=== PATIENT | female | born 1950 | race Caucasian/White ===

== ENCOUNTER 2024-04-05 12:52 | Outpatient (AMB) | payer MEDICARE, SELFPAY ==
--- NOTE | 2024-04-05 12:29 | A.OFFPC_ITS ---
Vital Signs 04/05/24 13:27 04/05/24 13:33 BMI Reason not done Patient refused/unable BP 154/64 H 144/58 H Blood Pressure Location Lt brachial Lt brachial Position Sitting Sitting Pulse 66 Pulse Source Pulse Oximeter Pulse Oximetry (%) 96 Oxygen Delivery Method Room Air Intake Visit Reasons: [employer]ICE-[employer] (get ins) Intake Note: New patient visit Integrated [employer]er Required: No Allergies Sulfa (Sulfonamide Antibiotics) Allergy (Unknown, Verified 04/05/24 13:19) Unknown Tobacco use date assessed: 04/05/24 Fall risk assessment: 2 + Falls in past year Last assessed Fall Risk: 04/05/24 Dental Screening Dental Screen Date: 04/05/24 Did you have a dental visit in the last 12 months?: No Did you have a dental problem in the last 6 months where you did not have access to dental care?: No Was dental information given to patient?: Patient has dentist HPI HPI Comments History of Present Illness Details 73 year old female with a past medical h istory of hypertension, hyperlipidemia, rheumatoid arthritis, recurrent UTI presenting [facility]. Transferring from [facility]. Was following with Dr Monk and Dr Rubin CV: BP elevated today. On amlodipine 5mg daily. Denies chest pain, shortness of breath. Had a panic attack/chest pain/palpitations. Echo was reassuring. Placed on holter monitor-was also reassuring. Follows with Dr Monk [facility]. She is frustrated by weight gain. She exercises regularly but admits to dietary indiscretion. Might consider GLP1 Urologic: Follows with Dr San. On macrobid daily and Gemtesa RA: Was following with rheumatology. Did not feel any better on MTX or humira. She takes ibuprofen TID tells me kidney function is stable. Bilateral hand pain- chronic Colonoscopy: 2022-Dr Toney. Says 5 year repeat Mammogram: No longer doing-declines ROS CONSTITUTIONAL: Denies weight loss, fever and chills. HEENT: Denies changes in vision and hearing. RESPIRATORY: Denies SOB and cough. CV: Denies palpitations and CP GI: Denies abdominal pain, nausea, vomiting and diarrhea. : Denies dysuria and urinary frequency. MSK: Denies new myalgia and joint pain. SKIN: Denies rash and pruritus. NEUROLOGICAL: Denies headache PSYCHIATRIC: Denies recent changes in mood. PHYSICAL EXAM: GENERAL: Alert and oriented x 3. NAD EYES: EOMI. Anicteric. HENT: Moist mucous membranes. No scleral icterus. No cervical lymphadenopathy. LUNGS: Clear to auscultation bilaterally. CARDIOVASCULAR: Regular rate and rhythm. No murmur. No JVD. ABDOMEN: Soft, non-tender +bs EXTREMITIES: No edema. Non-tender. SKIN: No rashes or lesions. Warm. NEUROLOGIC: No focal neurological deficits. CN II-XII grossly intact PSYCHIATRIC: Cooperative. Appropriate mood and affect [facility] Surgical History History of cholecystectomy H/O section Family History Mother Colon cancer Sister Pancreatic cancer Brother Heart attack Social History Housing: Apartment Alcohol intake: current Patient Tobacco Use Status: Former Tobacco user Years Smoked: 55 e-Cigarette/Vaping Use: Currently Using service: No Current occupational status: retired Cognitive needs: No Hearing needs: No Vision needs: Yes (glasses) Questionnaire Thrive Questionnaire Date Thrive assessed: 03/29/24 I am a: Patient What is your living situation today?: I have a steady place to live Within the past 12 months, did the food you bought not last and you didn't have the money to get more?: Never true Within the past 12 months, did you worry whether your food would run out before you got money to buy more?: Never true Do you have trouble paying for medicines?: No Do you have trouble getting transportation to medical appointments?: No Do you have trouble paying your heating and electricity bill?: No Do you have trouble taking care of your child, family member or friend?: No Do you have trouble with day-to-day activities such as bathing, preparing meals, shopping, managing finances, etc.?: No Are you currently unemployed and looking for a job?: No Are you interested in more education?: No Please select the resources that you would like help with: None Currently or been in a relationship where the following occur: No concerns reported THRIVE Score: 0 AUDIT C Alcohol Use Questionnaire (AUDIT-C) 1. How often do you have a drink containing alcohol?: 2-4 times a month 2. How many drinks containing alcohol do you have on a typical day when you are drinking?: 1 or 2 3. How often do you have six or more drinks on one occasion?: Never Total Score: 2 MARIANO-7 AMB Questionnaire MARIANO-7 Date MARIANO - 7 assessed: 04/05/24 Feeling nervous, anxious, or on edge: 1 = Several days Not being able to stop or control worryin = Several days Worrying too much about different things: 1 = Several days Trouble relaxin = Not at all Being so restless that it is hard to sit still: 0 = Not at all Becoming easily annoyed or irritable: 0 = Not at all Feeling afraid as if something awful might happen: 0 = Not at all Total MARIANO-7 score (0-4 normal; 5-9 mild; 10-14 moderate; 15-21 severe): 3 Source: Developed by Drs. Kevin Alex, Shabnam Childers, Dionicio Marx and colleagues, with an educational ger from [employer]. MARIANO-7 Assessment Billing MARIANO-7 Assessment Tool: MARIANO-7 Assessment 18083 Physical exam (Primary Care) Vital Signs: Last Vital Signs Pulse 66 04/05/24 13:27 BP 144/58 H 04/05/24 13:33 Pulse Ox 96 04/05/24 13:27 Oxygen Delivery Method Room Air 04/05/24 13:27 Tobacco/Smoking Status: Tobacco use Status Tobacco use date assessed 04/05/24 04/05/24 13:30 Patient Tobacco Use Status Former Tobacco user 04/05/24 13:53 e-Cigarette/Vaping Use Currently Using 04/05/24 13:53 Thrive Assessment: Date of Thrive Assessment Date Thrive assessed 03/29/24 04/05/24 12:30 Currently or been in a relationship where the following occur: No concerns reported Coding Level of Care Code New Pt Level 4 (00039) Complex EM visit Add On G2211 Diagnoses Encounter to establish care Z76.89 Primary hypertension I10 Hypertension type: primary hypertension Other hyperlipidemia E78.49 Hyperlipidemia type: other hyperlipidemia Rheumatoid arthritis, involving unspecified site, unspecified whether rheumatoid factor present M06.9 Rheumatoid arthritis location: unspecified site Rheumatoid factor presence: unspecified presence Additional Codes MARIANO-7 Assessment Billing - MARIANO-7 Assessment Tool: MARIANO-7 Assessment 77485 ([id number]) Assessment & Plan Assessment & Plan (1) Encounter to establish care: Code(s): Z76.89 - Persons encountering health services in other specified circumstances Category: Medical Plan: 73 year old presenting to establish care. Past medical, surgical, social and family history reviewed. Chart updated. Medications reconciled (2) Hypertension: Code(s): I10 - Essential (primary) hypertension Category: Medical Qualifiers: Hypertension type: primary hypertension Qualified Code(s): I10 - Essential (primary) hypertension Plan: Minimally elevated today. Says generally well controlled. She will start monitoring at home (3) Hyperlipidemia: Code(s): E78.5 - Hyperlipidemia, unspecified Category: Medical Qualifiers: Hyperlipidemia type: other hyperlipidemia Qualified Code(s): E78.49 - Other hyperlipidemia Plan: continue statin therapy (4) Rheumatoid arthritis: Code(s): M06.9 - Rheumatoid arthritis, unspecified Category: Medical Qualifiers: Rheumatoid arthritis location: unspecified site Rheumatoid factor presence: unspecified presence Qualified Code(s): M06.9 - Rheumatoid arthritis, unspecified Plan: ok on nsaids. monitor kidney function Orders: Orders TSH reflex Free T4 04/05/24 E78.5 - Hyperlipidemia, unspecified, I10 - Essential (primary) hypertension, R25.2 - Cramp and spasm, Z13.228 - Encounter for screening for other metabolic disorders Lipid Panel 04/05/24 E78.5 - Hyperlipidemia, unspecified, I10 - Essential (primary) hypertension, R25.2 - Cramp and spasm, Z13.228 - Encounter for screening for other metabolic disorders Comprehensive Met. Panel 04/05/24 E78.5 - Hyperlipidemia, unspecified, I10 - Essential (primary) hypertension, R25.2 - Cramp and spasm, Z13.228 - Encounter for screening for other metabolic disorders Complete Blood Count Auto Diff 04/05/24 E78.5 - Hyperlipidemia, unspecified, I10 - Essential (primary) hypertension, R25.2 - Cramp and spasm, Z13.228 - Encounter for screening for other metabolic disorders IRON PROFILE 04/05/24 E78.5 - Hyperlipidemia, unspecified, I10 - Essential (primary) hypertension, R25.2 - Cramp and spasm, Z13.228 - Encounter for s creening for other metabolic disorders
[2024-04-05 13:27] VITALS: BP 154/64; PULSE 66; O2SAT 96
[2024-04-05 13:33] VITALS: BP 144/58
--- OUTSIDE RECORDS SUMMARY | 2024-04-05 13:43 | XMS_ITS | Clinical Summary ---
Author Organization [facility] Address [address] [place] [address] Phone Care Team Providers Care Zigzag Machine Operator Name Role Phone Adrianna Parkinson MD Primary Care Provider [phone] Allergies Active Allergy Reactions Criticality Noted Date Comments Adalimumab 09/05/2019 Other reaction(s): Rash/Dermatitis Other Reaction(s): Rash/Dermatitis Erythromycin 06/05/2014 Simvastatin 06/14/2014 Other Reaction(s): Myalgia and Joint Pain Other reaction(s): Myalgia and Joint Pain Sulfa (Sulfonamide Antibiotics) 05/23/2021 Sulfur 06/05/2014 Medications Medication Sig Dispensed Refills Start Date End Date Status fenofibrate (TRICOR) 48 mg tablet Take 1 tablet (48 mg total) by mouth 1 (one) time each day. 01/07/2024 Active ibuprofen (ADVIL,MOTRIN) 800 mg tablet TAKE 1 TABLET BY MOUTH EVERY 8 HOURS NEEDED FOR PAIN 10/29/2023 Active amLODIPine (NORVASC) 5 mg tablet Take 1 tablet (5 mg total) by mouth 1 (one) time each day. 10/08/2023 Active econazole nitrate 1 % cream APPLY DAILY TO SKIN TO AFFECTED AREA EVERY DAY 06/15/2023 Active clotrimazole-betamet hasone (LOTRISONE) 1-0.05 % cream APPLY 1 APPLICATION ON THE SKIN TWICE A DAY 05/25/2023 Active nitrofurantoin, macrocrystal-monohyd rate, (MACROBID) 100 mg capsule Take 1 capsule (100 mg total) by mouth at bedtime. 12/10/2022 Active fluticasone propionate (FLONASE) 50 mcg/actuation nasal spray INSTILL 2 SPRAY INTO EACH NOSTRILL DAILY 04/26/2021 Active magnesium oxide 500 mg magnesium tablet Take by mouth. A ctive cholecalciferol (VITAMIN D-3) 50 mcg (2,000 unit) tablet Take by mouth. A ctive vibegron (Gemtesa) 75 mg tablet tablet Take 1 tablet (75 mg total) by mouth 1 (one) time each day. Active Active Problems Problem Noted Date Diagnosed Date High pulmonary arterial pressure 01/27/2024 Assessment & Plan (01/27/2024 3:17 PM EST): I reassured her that the echocardiographic evidence of mild pulmonary hypertension is most of the time not clinically significant. She does not have any symptoms. No further test is needed at this time. Orders: Ambulatory referral to Cardiology ECG 12 lead Severe obesity (BMI 35.0-35.9 with comorbidity) 01/25/2024 Abnormal EKG 04/15/2023 Chronic fatigue 04/15/2023 Murmur, cardiac 04/15/2023 Palpitations 04/15/2023 Assessment & Plan (01/27/2024 3:17 PM EST): We will try to detect the rhythm abnormality to define it and plan on management. Since this palpitation happens to occur once or twice a week, I will put her on 2 weeks of ROCT monitoring. Orders: Cardiac event monitor; Future Hypertension 04/25/2022 Colon polyp 04/26/2020 Overview (01/25/2024): [place] 03/2020, due again 09/2020 Recurrent UTI 10/28/2019 Overview (01/25/2024): Sees urology Lung nodules 10/04/2018 Overview (01/25/2024): LDCT TB lung, latent 02/08/2018 Oral herpes 06/09/2017 Impaired fasting glucose 05/06/2016 Seropositive rheumatoid arthritis 09/18/2015 Overview (01/25/2024): Onset ~ 2014 Brief courses of methotrexate 2015, 2018 - patient stopped meds on her own 2018- patient restarted MTX-developed stomatitis and stopped on her own 2019- humira- injection site reaction 09/2019- start olumiant Anxiety 06/05/2014 Hip pain, chronic 06/05/2014 Pure hypercholesterolemia 06/05/2014 Vertigo 06/05/2014 Vitamin D deficiency 06/05/2014 Encounters Date Type Department Care Team Description 02/08/2024 9:00 AM EST Ancillary Procedure [facility] Cardiology [facility] [address] [facility] [address] [facility] [address] [place] [address] Palpitations 02/01/[address] [place] [address] Sharath Monk MD ROCT - [id number] (Ok to Book); ROCT Enrollment (Enrolling patient for 14 day ROCT) 01/27/2024 2:00 PM EST Office Visit [address] [place] [address] Sharath Monk MD Palpitations (Primary Dx); High pulmonary arterial pressure (CMS/HCC) 01/19/2024 Telephone Adult Medicine [address] [phone] Wilfredo Pittman MD Forms/questionnaires 01/19/2024 Telephone Adult Medicine [address] [phone] Wilfredo Pittman MD from Last 3 Months Immunizations Name Administration Dates Next Due Influenza trivalent, 0.5mL ( Fluad) 65yo and older 12/11/2023,12/24/2022,12/26/2021,11/23,12/02/2018,12/31/2017 Influenza trivalent, 0.5mL, preservative free (Fluarix; FluLaval; Fluzone) ages 6mo and older (Afluria) 3 years and older 12/02/2020,12/19/2015,01/18/2015 Happy Metrix SARS-CoV-2 COVID-19, mRNA, LNP-S, preservative free 11/23/2023,12/27/2020,06/01/2020,05/11 Pneumococcal conjugate 13 va lent (Prevnar 13, PCV13) 2mo and older 02/07/2015 Pneumococcal conjugate 20 va lent (Prevnar 20, PCV 20) 2mo and older 01/15/2024 Pneumococcal polysaccharide 23 valent (Pneumovax 23) 2yo and older 01/13/2014 Respiratory syncytial virus (RSV), unspecified 11/28/2022 Tdap Tetanus diptheria acell ular pertussis (Boostrix; Adacel) 7yo and older 08/19/2017 Zoster recombinant (Shingrix ) 19yo and older 03/28/2020,01/03/2020,01/02/2020 Surgical History Surgery Date Site/Laterality Comments SECTION PROCEDURE: HISTORICAL DELIVERY CHOLECYSTECTOMY PROCEDURE: HISTORICAL CHOLECYSTECTOMY OTHER SURGICAL HISTORY 10/19 PROCEDURE: DISKECTOMY LUMBAR SINGLE SP; COMMENT: L2-L3 COLONOSCOPY 03/27/2020 PROCEDURE: HISTORICAL COLONOSCOPY; COMMENT: Polyps: Tubular adenomas. OTHER SURGICAL HISTORY PROCEDURE: [place] ARTHRP ACETBLR/PROX FEM PROSTC AGRFT/ALGRFT TOTAL KNEE ARTHROPLASTY PROCEDURE: [place] ARTHRP KNE CONDYLE&PLATU MEDIAL&LAT COMPARTMENTS CHOLECYSTECTOMY PROCEDURE: [place] LAPAROSCOPY SURG CHOLECYSTECTOMY Medical History Medical History Date Comments History of basal cell cancer 06/05/2014 DX: History of basal cell cancer Pure hypercholesterolemia 06/05/2014 DX:Pur e hypercholesterolemia Osteoarthritis 06/05/2014 DX:Osteoarthriti s Hip pain, chronic 06/05/2014 DX:Hip pain, c hronic Anxiety 06/05/2014 DX:Anxiety Previous back surgery 06/05/2014 DX:Previou s back surgery Vitamin D deficiency 06/05/2014 DX:Vitamin D deficiency Impaired fasting glucose 05/06/2016 DX:Impa ired fasting glucose Oral herpes 06/09/2017 DX:Oral herpes History of total knee replac ement (TKR) 01/27/2018 DX:History of total knee rep lacement (TKR); COMMENT: Left 09/22 History of hip replacement, total, left 01/27/2018 DX:History of hip replacemen t, total, left; COMMENT: 12/23 Lung nodules 10/04/2018 DX:Lung nodules Recurrent UTI 10/28/2019 DX:Recurrent UTI ; COMMENT: Sees urology Colon polyp 04/26/2020 DX:Colon polyp; COMMENT: [place] 03/2020, due again 09/2020 Hypertension 04/25/2022 DX:Hypertension Family History Medical History Relation Name Comments Heart attack Brother No Known Problems Daughter 1 No Known Problems Daughter 2 Crohn's disease Father Colon cancer Mother Pancreatic cancer Sister No Known Problems Son Relation Name Status Comments Brother Daughter 1 Alive Daughter 2 Alive Father Mother Sister Son Alive Social History Tobacco Use Types Packs/Day Years Used Date Smoking Tobacco: Former Cigarettes 0 07/01/2017 - 08/07/2021 Smokeless Tobacco: Never Alcohol Use Standard Drinks/Week Comments Yes 1 (1 standard drink = 0.6 oz pur e alcohol) Sex and Gender Information Value Date Recorded Sex Assigned at Not on file Gender Identity Not on file Sexual Orientation Not on file Job Start Date Occupation Industry Not on file Not on file Not on file Obstetrics History Last Filed Vital Signs Vital Sign Reading Time Taken Comments Blood Pressure 130/70 01/27/2024 2:36 PM EST Pulse 58 01/27/2024 2:36 PM EST Temperature - - Respiratory Rate - - Oxygen Saturation 97% 01/27/2024 2:36 PM EST Inhaled Oxygen Concentration - - Weight 86.2 kg (190 lb) 01/27/2024 2:36 PM EST Height 157.5 cm (5' 2 ) 01/27/2024 2:36 PM EST Body Mass Index 34.75 01/27/2024 2:36 PM EST Plan of Treatment Upcoming Encounters Date Type Department Care Team (Late st Contact Info) Description 05/06/2024 1:10 PM EST Office Visit [facility] [address] [facility] [place] [phone] Farhana Francois NP [address] [place] [address] [place] [address] 07/05/2024 11:30 AM EDT Office Visit [place] [facility] [place] [address] [place] [address] Wilfredo Pittman MD [address] [place] [address] Health Maintenance Due Date Last Done Comments Breast Cancer Screening 1950 Hepatitis A Vaccines (1 of 2 - Risk 2-dose series) 1969 RSV Immunization Patients 60+ Years Old (1 - Risk 60-74 years 1-dose series) 2010 11/28/2022 Depression Screening 02/13/2022 Falls Risk Assessment 02/13/2022 Osteoporosis Screening (Bone Density Screening) 02/13/2022 Social Influencers of Health Screening 02/13/2022 Medicare Annual Wellness Visit 12/26/2022 12/26/2021 Colorectal Cancer Screening: Colonoscopy 09/22/2023 03/24/2023 COVID-19 Vaccine ( season) 2024 11/23/2023, 12/08/2022, 01/09/2022, Additional history exists Hypertension/CHF/CAD Annual BMP Blood Test 04/15/2024 04/15/2023 DTaP,Tdap,and Td Vaccines (2 - Td or Tdap) 08/20/2027 08/19/2017 Cholesterol Screening (Lipid Panel) 07/06/2028 07/07/2023, 07/07/2023 Hepatitis C Screening Completed 01/21/2019 Zoster Vaccines Completed 03/28/2020, 12/08, 01/02/2020 RSV Immunization Patients Under 20 months Aged Out 11/28/2022 No longer eligible based on patient's age to complete this topic Influenza Vaccine Completed 12/11/2023, , 12/24/2022, Additional history exists Pneumococcal Vaccine: 65+ Years Completed 01/15/2024, 04/12/2020, 02/07/2015, Additional history exists HIB Vaccines Aged Out No longer eligi ble based on patient's age to complete this topic HPV Vaccines Aged Out No longer eligi ble based on patient's age to complete this topic Hepatitis B Vaccines Aged Out No long er eligible based on patient's age to complete this topic IPV Vaccines Aged Out No longer eligi ble based on patient's age to complete this topic MMR Vaccines Aged Out No longer eligi ble based on patient's age to complete this topic Meningococcal ACWY Vaccine Aged Out N o longer eligible based on patient's age to complete this topic Varicella Vaccines Aged Out No longer eligible based on patient's age to complete this topic Procedures Procedure Name Priority Date/Time Associated Diagnosis Comments CARDIAC YARD FOREMAN W/ CONNECTION (MCOT) Routine 02/08/2024 11:25 AM EST Palpitations ECG 12-LEAD Routine 01/27/2024 2:44 PM EST High pulmonary arterial pressure (CMS/HCC) CT LUNG SCREENING LOW DOSE Routine 01/04/2024 9:20 AM EDT Nicotine dependence, cigarettes, uncomplicated LIPID PANEL Routine 07/07/2023 ANNUAL BMP BLOOD TEST Routine 04/15/2023 COLONOSCOPY Routine 03/24/2023 HEPATITIS C SCREENING Routine 01/21/2019 from Last 3 Months or Most Recently Relevant to Health Maintenance Results * CARDIAC YARD FOREMAN W/ CONNECTION (MCOT) (02/08/2024 11:25 AM EST) Anatomical Region Laterality Modality Cardiac Diagnost ic Impressions 03/02/2024 3:09 PM EST 1. The predominant rhythm was sinus. 2. The average heart rate was 67 bpm, minimum heart rate was 52 bpm, maximum heart rate was 116 bpm. 3. Total VE burden: 0.4% consisting of singles, couplets, triplets, with 4 & 5 beat run's of AIVR. 4. Total SVE burden: 0.6% consisting of singles, couplets, with Atrial Run's present. 5. There were 7 patient triggered symptomatic events. ??Symptoms are associated with supraventricular ectopy/runs. Narrative 03/02/2024 3:09 PM EST [facility] DIAGNOSTIC TESTING DEPARTMENT [address] [facility], [place] [address] TEL: FAX: TYPE OF TEST: 14 day ROCT monitor. DATES OF MONITORIN02/08/2024- 02/22/2024 REQUESTING PHYSICIAN: Sharath Monk MD PRIMARY CARE PROVIDER: Adrianna Parkinson MD INDICATION: Palpitations Sharath Monk MD CV CARDIAC SERVICES PROCEDURES * ECG 12 lead (01/27/2024 2:44 PM EST) Ventricular Rate ECG 58 BPM GEMUSE Atrial Rate 58 BPM GEMUSE P-R Interval 152 ms GEMUSE QRS Duration 118 ms GEMUSE Q-T Interval 436 ms GEMUSE QTc 428 ms GEMUSE P Wave [place] 67 degrees GEMUSE R [place] -13 degrees GEMUSE T [place] -29 degrees GEMUSE ECG Interpretation Sinus bradycardia with Premature supraventricular complexes Left ventricular hypertrophy with QRS widening Cannot rule out Septal infarct (cited on or before 23-SEP-2016) ST and T wave abnormality, consider lateral ischemia Abnormal ECG When compared with ECG of 23-SEP-2016 09:56, Premature supraventricular complexes are now Present Incomplete right bundle branch block is no longer Present Questionable change in initial forces of Septal leads Confirmed by SHARATH MONK ([id number]) on 01/27/2024 3:17:12 PM GEMUSE 01/27/2024 2:44 PM EST 01/27/2024 3:17 PM EST Sharath Monk MD ECG ORDERABLES GEMUSE * CT LUNG SCREENING LOW DOSE (01/04/2024 9:20 AM EDT) Anatomical Region Laterality Modality Computed Tomogra phy 01/02/2024 8:57 AM EDT Narrative 01/04/2024 9:20 AM EDT [facility] Diagnostic Imaging Department [address] [place] [address] Patient: ??CORNELIA SALMERON ?/Age/Sex: 1950 - 73 - F Unit#: ??[id number] ? Location/Status: ??SPDICATLS/REG CLI ? Mnemonic/Ordering Site: ??CTLUNGLD/SPCT Ordering Physician: ??KRISTI ZAZUETA MD CT Lung Screening Low Dose - 01/02/24901 Report Status:Signed PROCEDURE: Chest CT INDICATION: Current smoker, 58 pack year smoking history, tobacco abuse, lung cancer screening TECHNIQUE: Chest CT without contrast. Multi planar reformats were created and interpreted. The examination was performed utilizing dose reduction techniques. Total DLP 175 COMPARISON: ??10/10/2022 FINDINGS: LUNGS/PLEURA: Central airways are patent. ??Emphysema. ??5 mm fissural nodule in the right upper lobe adjacent to the minor fissure, stable compared to prior. Smaller nodules scattered throughout the lungs are also stable compared to prior. ??Linear nodule along the left fissure in the left lower lobe measures 5 mm, stable compared to prior. ??Linear subpleural cysts nodule in the posterior aspect of the right apex is unchanged. ??No new or suspicious pulmonary nodules. No pleural effusion or pneumothorax. MEDIASTINUM: Thyroid gland is unremarkable. No mediastinal or hilar lymphadenopathy. Cardiac chambers are normal in size. No pericardial effusion. Esophagus is normal. ??Severe coronary artery calcification. ??Aortic valvular calcification. CHEST WALL: No axillary lymphadenopathy or superficial hematoma. UPPER ABDOMEN:Hepatic steatosis. ??Duodenal diverticula BONES: No acute fracture. Scattered degenerative changes seen throughout the bones. IMPRESSION: No new or suspicious pulmonary nodules. ??Lung RADS 2-benign. ??Recommend continued screening with low-dose chest CT in 12 months. Dictating Physician: ??CIHDI VAZ MD Electronically Signed by: ??CHIDI VAZ MD Dic Date/Time: ??01/04/24911 Sign date/Time: ??01/04/24919 Procedure Note Chidi Vaz MD - 01/09/2024 [facility] Diagnostic Imaging Department [address] [place] [address] Patient: CORNELIA SALMERON /Age/Sex: 1950 - 73 - F Unit#: [id number] Location/Status: [facility] Mnemonic/Ordering Site: [facility] Ordering Physician: KRISTI ZAZUETA MD CT Lung Screening Low Dose - 01/02/24901 Report Status:Signed PROCEDURE: Chest CT INDICATION: Current smoker, 58 pack year smoking history, tobacco abuse,lung cancer screening TECHNIQUE: Chest CT without contrast. Multi planar reformats were createdand interpreted. The examination was performed utilizing dose reductiontechniques. Total DLP 175 COMPARISON: 10/10/2022 FINDINGS: LUNGS/PLEURA: Central airways are patent. Emphysema. 5 mm fissuralnodule in the right upper lobe adjacent to the minor fissure, stable compared toprior. Smaller nodules scattered throughout the lungs are also stable comparedto prior. Linear nodule along the left fissure in the left lower lobemeasures 5 mm, stable compared to prior. Linear subpleural cysts nodule in theposterior aspect of the right apex is unchanged. No new or suspicious pulmonarynodules. No pleural effusion or pneumothorax. MEDIASTINUM: Thyroid gland is unremarkable. No mediastinal or hilar lymphadenopathy. Cardiac chambers are normal in size. No pericardialeffusion. Esophagus is normal. Severe coronary artery calcification. Aorticvalvular calcification. CHEST WALL: No axillary lymphadenopathy or superficial hematoma. UPPER ABDOMEN:Hepatic steatosis. Duodenal diverticula BONES: No acute fracture. Scattered degenerative changes seen throughoutthe bones. IMPRESSION: No new or suspicious pulmonary nodules. Lung RADS 2-benign. Recommend continued screening with low-dose chest CT in 12 months. Dictating Physician: CHIDI VAZ MD Electronically Signed by: CHIDI VAZ MD Dic Date/Time: 01/04/24911 Sign date/Time: 01/04/24919 Kristi Zazueta MD IMG CT PROCEDURES * (ABNORMAL) Lipid panel (07/07/2023) [facility] LDL/HDL Ratio 5(A) 0 - 4 Triglycerides 158(A) 0 - 150 mg/dL Cholesterol 216(A) 0 - 200 mg/dL HDL 46 40 mg/dL LDL Cholesterol 139(A) 0 - 100 mg/dL Blood Venous blood specimen / Unknown Historical Provider LAB BLOOD ORDERAB [facility] * Annual BMP Blood Test (04/15/2023) [facility] Annual BMP Blood Test abstracted Historical Provider [facility] Colonoscopy (03/24/2023) [facility] Colonoscopy abstracted, no interpretation Anatomical Region Laterality Modality Other Historical Provider [facility] Hepatitis C Screening (01/21/2019) [facility] Hepatitis C Screening abstracted Historical Provider MD LINDA Calvillo from Last 3 Months or Most Recently Relevant to Health Maintenance Care Teams Zigzag Machine Operator Relationship Specialty Start Date End Date Adrianna Parkinson MD PCP - General Internal Medicine 01/27/24
--- OUTSIDE RECORDS SUMMARY | 2024-04-05 13:43 | XMS_ITS | Clinical Summary ---
Author Organization [facility] Address [address] [place] [address] Care Team Providers Care Electronic Tech Name Role Phone Unavailable Primary Care Provider Unavailabl e Allergies Active Allergy Reactions Criticality Noted Date Comments Adalimumab 09/05/2019 Other reaction(s): Rash/Dermatitis Atorvastatin 06/14/2014 Other reaction(s): Myalgia and Joint Pain Elemental Sulfur 06/05/2014 Erythromycin 06/05/2014 Simvastatin 06/14/2014 Other reaction(s): Myalgia and Joint Pain Medications Medication Sig Dispensed Refills Start Date End Date Status Tdap (Adacel) 5-2-15.5 LF-MCG/0.5 injection Adacel (Tdap Adolesn/Adult)(PF)2Lf -(2.5-5-3-5mcg)-5 Lf/0.5 mL IM susp 0 Active pyridoxine (B-6) 50 MG tablet Vitamin B-6 50 mg tablet 0 Active predniSONE (DELTASONE) 5 mg tablet prednisone 5 mg tablet 0 Active nitrofurantoin, macrocrystal-monohy drate, (MACROBID) 100 MG capsule Take 100 mg by mouth daily. 0 03/29/2021 Active methotrexate 2.5 MG tablet methotrexate sodium 2.5 mg tablet 0 Active nitrofurantoin (MACRODANTIN) 100 MG capsule Take 1 capsule by mouth daily. 0 10/05/2019 Active magnesium oxide tablet 500 mg Take by mouth. 0 Active ibuprofen 800 MG tablet ibuprofen 800 mg tablet 0 04/11/2021 Active isoniazid (NYDRAZID) 300 MG tablet isoniazid 300 mg tablet 0 Active LORazepam (ATIVAN) 1 MG tablet TAKE 1/2 TO 1 TABLET BY MOUTH EVERY DAY NEEDED FOR ANXIETY 0 03/15/2021 Active folic acid (FOLVITE) tablet 1 mg folic acid 1 mg tablet 0 Active fluticasone (FLONASE) 50 MCG/ACT nasal spray INSTILL 2 SPRAY INTO EACH NOSTRILL DAILY 0 01/17/2021 Active atorvastatin (LIPITOR) tablet 20 mg atorvastatin 20 mg tablet 0 01/28/2021 Active Cholecalciferol 50 MCG (1999 UT) TABS Take by mouth. 0 Ac tive amLODIPine (NORVASC) tablet 2.5 mg Take 2.5 mg by mouth daily. 0 03/13/2021 Active acetaminophen (Mapap) 500 MG tablet Mapap Extra Strength 500 mg tablet 0 Active VITAMIN D PO Take by mouth. 0 Active Family History Medical History Relation Name Comments Diabetes Brother Heart disease Brother Cancer Mother Cancer Sister Relation Name Status Comments Brother Mother Sister Social History Tobacco Use Types Packs/Day Years Used Date Smoking Tobacco: Every Day Cigarettes 0.8 Smokeless Tobacco: Never Alcohol Use Standard Drinks/Week Comments Yes 2 (1 standard drink = 0.6 oz pur e alcohol) Sex and Gender Information Value Date Recorded Sex Assigned at Not on file Gender Identity Not on file Sexual Orientation Not on file Job Start Date Occupation Industry Not on file Not on file Not on file Last Filed Vital Signs Vital Sign Reading Time Taken Comments Blood Pressure - - Pulse - - Temperature - - Respiratory Rate - - Oxygen Saturation - - Inhaled Oxygen Concentration - - Weight 81.6 kg (180 lb) 04/17/2021 10:31 AM EST Height 157.5 cm (5' 2 ) 04/17/2021 10:31 AM EST Body Mass Index 32.92 04/17/2021 10:31 AM EST Plan of Treatment Health Maintenance Due Date Last Done Comments Hepatitis C Screening 1950 Depression Screening 1962 BMI Counseling 1968 Preventative Health Evaluation 1968 Tobacco Cessation Counseling 1968 Colon Cancer Screening (Colonoscopy) 11/01/1995 Breast Cancer Screening (Mammogram) 2000 Fall Risk Assessment 11/01/2015 Osteoporosis Screening (DEXA Scan) 11/01/2015 COVID-19 Vaccine ( season) 2023 12/27/2020, 06/01/2020, 05/11/2020 Influenza Vaccine (#1) 2023 , 11/24/2019, 12/02/2018, Additional history exists RSV Adult > 60+ Yrs or (1 - 1-dose 75+ series) 2025 DTap / Tdap / Td (2 - Td or Tdap) 08/20/2027 08/19/2017 Shingrix-Zoster Vaccine Completed 03/28/19, 01/03/2020, 01/02/2020 Pneumococcal Vaccine Completed 04/12/2020, 02/07/2015, 01/13/2014 Hepatitis B Vaccines Aged Out No long er eligible based on patient's age to complete this topic RSV Ped < 20 months Aged Out No longe r eligible based on patient's age to complete this topic PaulLuanakennycarlos Personal/Family Self 1950 [address] [place] [address]
== END 2024-04-05 14:08 | disposition home or self-care (01) ==
PROVIDERS: PCP Internal Medicine; Visit Provider Internal Medicine
DX: Z76.89 Persons encountering health services in other specified circumstances (principal); I10 Essential (primary) hypertension; E78.49 Other hyperlipidemia; M06.9 Rheumatoid arthritis, unspecified

== ENCOUNTER → 2024-04-05 12:52 | Outpatient (BNVA) | payer MEDICARE, SELFPAY | PROVIDERS: PCP Internal Medicine; Visit Provider Internal Medicine | DX: M06.9 Rheumatoid arthritis, unspecified (principal); I10 Essential (primary) hypertension; R25.2 Cramp and spasm; E78.5 Hyperlipidemia, unspecified; E78.49 Other hyperlipidemia; Z76.89 Persons encountering health services in other specified circumstances | CPT/HCPCS: 96127; 99202 ==

== ENCOUNTER 2024-06-14 15:00 | Outpatient (AMB) | payer MEDICARE, SELFPAY ==
--- NOTE | 2024-06-14 15:07 | MHC.PC.OV ---
Vital Signs 06/14/24 15:10 Height 5 ft 1 in Weight 189 lb 8 oz BMI 35.8 BMI Reason not done Patient refused/unable BP 128/74 Blood Pressure Location Lt brachial Position Sitting Respiration 14 Pulse 65 Pulse Source Pulse Oximeter Pulse Oximetry (%) 96 Oxygen Delivery Method Room Air Intake Visit Reasons: blood pressure and weight Intake Note: Blood pressue follow up. Executive Office Manager Required: No Allergies Sulfa (Sulfonamide Antibiotics) Allergy (Unknown, Verified 06/14/24 15:09) Unknown Medication List - Last Reconciled 06/14/24 by Adrianna Parkinson MD amlodipine 10 mg PO DAILY cholecalciferol (vitamin D3) 50 mcg PO DAILY clotrimazole-betamethasone 1-0.05 % 1 appl topical BID doxycycline hyclate 100 mg PO BID econazole nitrate 1% appl topical DAILY fenofibrate nanocrystallized 48 mg PO DAILY fluticasone propionate 50 mcg/actuation intranasal ibuprofen 800 mg PO Q8H PRN magnesium oxide 500 mg PO DAILY nitrofurantoin monohyd/m-cryst 100 mg 1 cap PO DAILY ondansetron HCl 4 mg PO Q8H PRN vibegron (Gemtesa) 75 mg PO DAILY Zepbound (tirzepatide (weight loss)) 2.5 mg (0.5 mL) subcut QWEEK NS Tobacco use date assessed: 06/14/24 Fall risk assessment: 2 + Falls in past year (2) Last assessed Fall Risk: 06/14/24 Dental Screening Dental Screen Date: 04/05/24 HPI HPI Comments History of Present Illness Details 73 year old female with a past medical history of hypertension, hyperlipidemia, rheumatoid arthritis, recurrent UTI presenting for follow up Recently evaluated in urgent care x 2 for 3 week history of cough, wheezing. Viral panel negative. Did not get CXR. BP was elevated. Still with residual cough, some fatigue CV: On amlodipine 5mg daily. Blood pressure is ok but has been elevated at home and at doctors appts up to 150s, 160s. Denies chest pain, shortness of breath. Had a panic attack/chest pain/palpitations. Echo was reassuring. Placed on holter monitor-was also reassuring. Follows with Dr Aleshia SOLORIO. She is frustrated by weight gain. She exercises regularly but admits to dietary indiscretion. Might consider GLP1 Urologic: Follows with Dr San. On macrobid daily and Gemtesa RA: Was following with rheumatology. Did not feel any better on MTX or humira. She takes ibuprofen TID tells me kidney function is stable. Bilateral hand pain-chronic Colonoscopy: 2022-Dr Toney. Says 5 year repeat Mammogram: No longer doing-declines ROS see HPI PHYSICAL EXAM: GENERAL: Alert and oriented x 3. NAD EYES: EOMI. Anicteric. HENT: Moist mucous membranes. No scleral icterus. No cervical lymphadenopathy. LUNGS: Posterior b/l ower lobe rhonci, coarse CARDIOVASCULAR: Regular rate and rhythm. No murmur. No JVD. ABDOMEN: Soft, non-tender +bs EXTREMITIES: No edema. Non-tender. SKIN: No rashes or lesions. Warm. NEUROLOGIC: No focal neurological deficits. CN II-XII grossly intact PSYCHIATRIC: Cooperative. Appropriate mood and affect [facility] Surgical History History of cholecystectomy H/O section Family History Mother Colon cancer Sister Pancreatic cancer Brother Heart attack Social History Housing: Apartment Alcohol intake: current Patient Tobacco Use Status: Former Tobacco user Years Smoked: 55 e-Cigarette/Vaping Use: Currently Using service: No Current occupational status: retired Cognitive needs: No Hearing needs: No Vision needs: Yes (glasses) Questionnaire PHQ-9 Over the last 2 weeks, how often have you been bothered by any of the following problems? 1. Little interest or pleasure in doing things: not at all 2. Feeling down, depressed, or hopeless: not at all 3. Trouble falling or staying asleep, or sleeping too much: not at all 4. Feeling tired or having little energy: several days 5. Poor appetite or overeating: several days 6. Feeling bad about yourself - or that you are a failure or have let yourself or your family down: not at all 7. Trouble concentrating on things, such as reading the newspaper or watching television: not at all 8. Moving or speaking so slowly that other people could have noticed. Or the opposite - being so fidgety or restless that you have been moving around a lot more than usual: not at all 9. Thoughts that you would be better off or of hurting yourself in some way: not at all Total score: 2 Depression Screening Interpretation: Negative Depression Screening Done: Yes 16183 - PHQ-9 Billing: Yes Source: Developed by Drs. Kevin Alex, Shabnam Childers, Dionicio Marx and colleagues, with an educational ger from [employer]. Thrive Questionnaire Date Thrive assessed: 03/29/24 I am a: Patient What is your living situation today?: I have a steady place to live Within the past 12 months, did the food you bought not last and you didn't have the money to get more?: Never true Within the past 12 months, did you worry whether your food would run out before you got money to buy more?: Never true Do you have trouble paying for medicines?: No Do you have trouble getting transportation to medical appointments?: No Do you have trouble paying your heating and electricity bill?: No Do you have trouble taking care of your child, family member or friend?: No Do you have trouble with day-to-day activities such as bathing, preparing meals, shopping, managing finances, etc.?: No Are you currently unemployed and looking for a job?: No Are you interested in more education?: No Please select the resources that you would like help with: None Currently or been in a relationship where the following occur: No concerns reported THRIVE Score: 0 MARIANO-7 AMB Questionnaire MARIANO-7 Date MARIANO - 7 assessed: 04/05/24 Source: Developed by Drs. Kevin Alex, Shabnam Childers, Dionicio Marx and colleagues, with an educational ger from [employer]. Physical exam (Primary Care) Vital Signs: Last Vital Signs Pulse 65 06/14/24 15:10 Resp 14 06/14/24 15:10 BP 128/74 06/14/24 15:10 Pulse Ox 96 06/14/24 15:10 Oxygen Delivery Method Room Air 06/14/24 15:10 BMI result Body Mass Index 35.8 Tobacco/Smoking Status: Tobacco use Status Tobacco use date assessed 06/14/24 06/14/24 15:12 Patient Tobacco Use Status Former Tobacco user 06/14/24 15:08 e-Cigarette/Vaping Use Currently Using 06/14/24 15:08 PHQ-9: PHQ-9 Score PHQ-9: Total score 2 06/14/24 18:50 Depression Screening Interpretation: Negative Thrive Assessment: Date of Thrive Assessment Date Thrive assessed 03/29/24 06/14/24 15:08 Currently or been in a relationship where the following occur: No concerns reported Coding Level of Care Code Est Pt Level 4 (93511) Diagnoses Class 2 severe obesity with serious comorbidity and body mass index (BMI) of 35.0 to 35.9 in adult, unspecified obesity type E66.812; E66.01; Z68.35 Body mass index: BMI 35.0-35.9 Obesity classification: adult class 2 (BMI 35 - 39.9) Obesity type: unspecified obesity type Serious obesity comorbidity presence: with serious comorbidity Primary hypertension I10 Hypertension type: primary hypertension Other hyperlipidemia E78.49 Hyperlipidemia type: other hyperlipidemia Subacute cough R05.2 Cough type: subacute Additional Codes PHQ-9 - 52478 - PHQ-9 Billing: Yes ([id number]) Assessment & Plan Assessment & Plan (1) Obesity: Code(s): E66.9 - Obesity, unspecified Category: Medical Qualifiers: Body mass index: BMI 35.0-35.9 Obesity classification: adult class 2 (BMI 35 - 39.9) Obesity type: unspecified obesity type Serious obesity comorbidity presence: with serious comorbidity Qualified Code(s): E66.812 - Obesity, class 2; E66.01 - Morbid (severe) obesity due to excess calories; Z68.35 - Body mass index [BMI] 35.0-35.9, adult (2) Hypertension: Code(s): I10 - Essential (primary) hypertension Category: Medical Qualifiers: Hypertension type: primary hypertension Qualified Code(s): I10 - Essential (primary) hypertension (3) Hyperlipidemia: Code(s): E78.5 - Hyperlipidemia, unspecified Category: Medical Qualifiers: Hyperlipidemia type: other hyperlipidemia Qualified Code(s): E78.49 - Other hyperlipidemia (4) Cough: Code(s): R05.9 - Cough, unspecified Category: Medical Qualifiers: Cough type: subacute Qualified Code(s): R05.2 - Subacute cough Plan Exam concerning for pneumonia. Doxycycline sent Patient has obesity with htn, hld and has failed lifestyle changes including exercise and dietary changes Medications: New Zepbound (tirzepatide (weight loss)) for 4 weeks 2.5 mg (0.5 mL) subcut QWEEK 2 mL 0RF NS E66.9 - Obesity, unspecified, E78.49 - Other hyperlipidemia, I10 - Essential (primary) hypertension ondansetron HCl 4 mg PO Q8H PRN 30 tabs 0RF nausea and vomiting amlodipine 10 mg PO DAILY 90 tabs 3RF doxycycline hyclate 100 mg PO BID 20 tabs 0RF
[2024-06-14 15:10] VITALS: BP 128/74; PULSE 65; RESP 14; O2SAT 96; BMI 35.8
--- OUTSIDE RECORDS SUMMARY | 2024-06-14 18:05 | XMS_ITS ---
Author Name [facility] Organization Unknown Care Team Organization Name Specialty Phone Email Start Date End [facility]
--- OUTSIDE RECORDS SUMMARY | 2024-06-14 18:05 | XMS_ITS | Clinical Summary ---
Author Organization [facility] [employer] [facility] Address [address] [place] [address] Phone Care Team Providers Care Window Repairer Name Role Phone Adrianna Parkinson MD Primary Care Provider [phone] Allergies Active Allergy Reactions Criticality Noted Date Comments Adalimumab 09/05/2019 Other reaction(s): Rash/Dermatitis Other Reaction(s): Rash/Dermatitis Erythromycin 06/05/2014 Simvastatin 06/14/2014 Other Reaction(s): Myalgia and Joint Pain Other reaction(s): Myalgia and Joint Pain Sulfa (Sulfonamide Antibiotics) 05/23/2021 Sulfur 06/05/2014 Medications fenofibrate (TRICOR) 48 mg tablet Take 1 tablet (48 mg total) by mouth 1 (one) time each day. 01/07/2024 Active ibuprofen (ADVIL,MOTRIN) 800 mg tablet TAKE 1 TABLET BY MOUTH EVERY 8 HOURS NEEDED FOR PAIN 10/29/2023 Active amLODIPine (NORVASC) 5 mg tablet Take 1 tablet (5 mg total) by mouth 1 (one) time each day. 10/08/2023 Active magnesium oxide 500 mg magnesium tablet Take by mouth. Active vibegron (Gemtesa) 75 mg tablet tablet Take [...] Hypertension 04/25/2022 Colon polyp 04/26/2020 Overview (01/25/2024): Cheney 03/2020, due again 09/2020 Recurrent UTI 10/28/2019 [...] Encounters Date Type Department Care Team Description 05/06/2024 1:10 PM EST Office Visit [facility] [address] [place] [address] Farhana Francois NP Mild aortic stenosis (Primary Dx); Palpitations; Primary hypertension; Pure hypercholesterolemia from Last 3 Months Immunizations Name Administration Dates Next Due Influenza trivalent, 0.5mL ( Fluad) 65yo and older 12/11/2023,12/24/2022,12/26/2021,11/23,12/02/2018,12/31/2017 Influenza trivalent, 0.5mL, preservative free (Fluarix; FluLaval; Fluzone) ages 6mo and older (Afluria) 3 years and older 12/02/2020,12/19/2015,01/18/2015 [employer] SARS-CoV-2 COVID-19, mRNA, LNP-S, preservative free 11/23/2023,12/27/2020,06/01/2020,05/11 [...] Polyps: Tubular adenomas. OTHER SURGICAL HISTORY PROCEDURE: AL ARTHRP ACETBLR/PROX FEM PROSTC AGRFT/ALGRFT TOTAL KNEE ARTHROPLASTY PROCEDURE: AL ARTHRP KNE CONDYLE&PLATU MEDIAL&LAT COMPARTMENTS CHOLECYSTECTOMY PROCEDURE: AL LAPAROSCOPY SURG CHOLECYSTECTOMY Medical History Medical History [...] urology Colon polyp 04/26/2020 DX:Colon polyp; COMMENT: Cheney 03/2020, due again 09/2020 Hypertension 04/25/2022 DX:Hypertension [...] drink = 0.6 oz pur e alcohol) rarely - wine Comments Unknown Sex and Gender Information Value Date Recorded Sex Assigned at Not on file Legal Sex Female 1:22 AM EST Gender Identity Not on file Sexual Orientation Not on file Obstetrics History Last Filed Vital Signs Vital Sign Reading Time Taken Comments Blood Pressure 138/60 05/06/2024 1:15 PM EST Pulse 63 05/06/2024 1:15 PM EST Temperature - - Respiratory Rate - - Oxygen Saturation 95% 05/06/2024 1:15 PM EST Inhaled Oxygen Concentration - - Weight 84.8 kg (187 lb) 05/06/2024 1:15 PM EST Height 157.5 cm (5' 2 ) 05/06/2024 1:15 PM EST Body Mass Index 34.2 05/06/2024 1:15 PM EST Plan of Treatment Upcoming Encounters Date Type Department Care Team (Late st Contact Info) Description 11/03/2024 1:00 PM EDT Ancillary Procedure [facility] [address] [place] [id number] 12/14/2024 10:50 AM EDT Office Visit [facility] [address] [place] [address] Sharath Monk MD [address] [place] [address] [address] [place] [address] Health Maintenance Due Date Last Done Comments Breast Cancer Screening 1950 RSV Immunization Adult Patients (1 - Risk 60-74 years 1-dose series) [...] , 12/24/2022, Additional history exists Pneumococcal Vaccine: 50+ Years Completed 01/15/2024, 04/12/2020, 02/07/2015, Additional history exists HIB Vaccines Aged Out No longer eligi ble based on patient's age to complete this topic HPV Vaccines Aged Out No longer eligi ble based on patient's age to complete this topic Hepatitis A Vaccines Aged Out No long er eligible [...] patient's age to complete this topic Meningococcal B Vaccine Aged Out No l onger eligible based on patient's age to complete this topic Varicella Vaccines Aged Out No longer eligible based on patient's age to complete this topic Procedures Procedure Name Priority Date/Time Associated Diagnosis Comments LIPID PANEL Routine 07/07/2023 ANNUAL BMP BLOOD TEST Routine 04/15/2023 COLONOSCOPY Routine 03/24/2023 HEPATITIS C SCREENING Routine 01/21/2019 from Last 3 Months or Most Recently Relevant to Health Maintenance Results * (ABNORMAL) Lipid panel (07/07/2023) LDL/HDL Ratio 5(A) 0 - 4 Triglycerides 158(A) 0 - 150 mg/dL Cholesterol 216(A) 0 - 200 mg/dL HDL 46 >=40 mg/dL LDL Cholesterol 139(A) 0 - 100 mg/dL Blood Venous blood specimen / Unknown Historical Provider LAB BLOOD ORDERABLES Krystal l Result * Annual BMP Blood Test (04/15/2023) Pathologist [facility] Annual BMP Blood Test abstracted Historical Provider HEALTH MAINTENANCE Final Result * Colonoscopy (03/24/2023) Colonoscopy abstracted, no interpretation Anatomical Region Laterality Modality Other Historical Provider HEALTH MAINTENANCE Final Result * Hepatitis C Screening (01/21/2019) Hepatitis C Screening abstracted Historical Provider HEALTH MAINTENANCE Final Result from Last 3 Months or Most Recently Relevant to Health Maintenance Insurance [employer] Care Teams Window Repairer Relationship Specialty Start Date End Date Adrianna Parkinson MD [address] [place] [phone] PCP - General Internal Medicine 05/06/24
--- OUTSIDE RECORDS SUMMARY | 2024-06-14 18:05 | XMS_ITS | Clinical Summary ---
Author Organization [facility] Address [address] [place] [address] Care Team Providers Care Customer Contact Sales Associate Name Role Phone Unavailable Primary Care Provider [...] PaulLuanakennycarlos Personal/Family Self 1950 [address] [place] [address]
== END 2024-06-14 15:43 | disposition home or self-care (01) ==
LOC: HO.HMCFM 15:01
PROVIDERS: PCP Internal Medicine; Visit Provider Internal Medicine
DX: E66.812 Obesity, class 2 (principal); E66.01 Morbid (severe) obesity due to excess calories; Z68.35 Body mass index [BMI] 35.0-35.9, adult; I10 Essential (primary) hypertension; E78.49 Other hyperlipidemia; R05.2 Subacute cough

== ENCOUNTER → 2024-06-14 15:00 | Outpatient (BNVA) | payer MEDICARE, SELFPAY | PROVIDERS: PCP Internal Medicine; Visit Provider Internal Medicine | DX: E66.812 Obesity, class 2 (principal); E66.01 Morbid (severe) obesity due to excess calories; Z68.35 Body mass index [BMI] 35.0-35.9, adult; I10 Essential (primary) hypertension; E78.49 Other hyperlipidemia; R05.2 Subacute cough | CPT/HCPCS: 96127; 99212 ==

== ENCOUNTER 2024-09-19 09:12 | Outpatient (AMB) | payer MEDICARE, SELFPAY ==
--- NOTE | 2024-09-19 09:23 | A.OFFPC_ITS ---
Vital Signs 09/19/24 09:28 BMI Reason not done Patient refused/unable BP 138/62 Blood Pressure Location Lt brachial Position Sitting Respiration 14 Pulse 61 Pulse Source Pulse Oximeter Temp 98.4 F Temp Source Oral Pulse Oximetry (%) 97 Oxygen Delivery Method Room Air Intake Visit Reasons: weight/BP Intake Note: Blood pressure follow up Income Tax Manager Required: No Allergies Sulfa (Sulfonamide Antibiotics) Allergy (Unknown, Verified 09/19/24 09:24) Unknown Tobacco use date assessed: 09/19/24 Dental Screening Dental Screen Date: 04/05/24 HPI HPI Comments History of Present Illness Details 73 year old female with a past medical h istory of hypertension, hyperlipidemia, rheumatoid arthritis, recurrent UTI presenting for follow up CV: On amlodipine 10mg daily. Denies chest pain, shortness of breath. Had a panic attack/chest pain/palpitations. Echo was reassuring. Placed on holter monitor-was also reassuring. Follows with Dr Aleshia SOLORIO. She is frustrated by weight gain. She exercises regularly and has been decreasing caloric intake with no weight loss. Wanted GLP1 but not covered by insurance Urologic: Follows with Dr San. On macrobid daily and Gemtesa RA: Was following with rheumatology. Did not feel any better on MTX or humira. She takes ibuprofen TID.. Bilateral hand pain-chronic Colonoscopy: 2022-Dr Toney. Says 5 year repeat Mammogram: No longer doing-declines ROS see HPI PHYSICAL EXAM: GENERAL: Alert and oriented x 3. NAD EYES: EOMI. Anicteric. HENT: Moist mucous membranes. No scleral icterus. No cervical lymphadenopathy. LUNGS: Posterior b/l ower lobe rhonci, coarse CARDIOVASCULAR: Regular rate and rhythm. No murmur. No JVD. ABDOMEN: Soft, non-tender +bs EXTREMITIES: No edema. Non-tender. SKIN: No rashes or lesions. Warm. NEUROLOGIC: No focal neurological deficits. CN II-XII grossly intact PSYCHIATRIC: Cooperative. Appropriate mood and affect [facility] Surgical History History of cholecystectomy H/O section Family History Mother Colon cancer Sister Pancreatic cancer Brother Heart attack Social History Housing: Apartment Alcohol intake: current Patient Tobacco Use Status: Former Tobacco user Years Smoked: 55 e-Cigarette/Vaping Use: Currently Using service: No Current occupational status: retired Cognitive needs: No Hearing needs: No Vision needs: Yes (glasses) Questionnaire Thrive Questionnaire Date Thrive assessed: 03/29/24 I am a: Patient What is your living situation today?: I have a steady place to live Within the past 12 months, did the food you bought not last and you didn't have the money to get more?: Never true Within the past 12 months, did you worry whether your food would run out before you got money to buy more?: Never true Do you have trouble paying for medicines?: No Do you have trouble getting transportation to medical appointments?: No Do you have trouble paying your heating and electricity bill?: No Do you have trouble taking care of your child, family member or friend?: No Do you have trouble with day-to-day activities such as bathing, preparing meals, shopping, managing finances, etc.?: No Are you currently unemployed and looking for a job?: No Are you interested in more education?: No Please select the resources that you would like help with: None Currently or been in a relationship where the following occur: No concerns reported THRIVE Score: 0 MARIANO-7 AMB Questionnaire MARIANO-7 Date MARIANO - 7 assessed: 04/05/24 Source: Developed by Drs. Kevin Alex, Shabnam Childers, Dionicio Marx and colleagues, with an educational ger from [employer]. Physical exam (Primary Care) Vital Signs: Last Vital Signs Temp 98.4 F 09/19/24 09:28 Pulse 61 09/19/24 09:28 Resp 14 09/19/24 09:28 BP 138/62 09/19/24 09:28 Pulse Ox 97 09/19/24 09:28 Oxygen Delivery Method Room Air 09/19/24 09:28 Tobacco/Smoking Status: Tobacco use Status Tobacco use date assessed 09/19/24 09/19/24 09:25 Patient Tobacco Use Status Former Tobacco user 09/19/24 09:25 e-Cigarette/Vaping Use Currently Using 09/19/24 09:25 Thrive Assessment: Date of Thrive Assessment Date Thrive assessed 03/29/24 09/19/24 09:25 Currently or been in a relationship where the following occur: No concerns reported Coding Level of Care Code Est Pt Level 4 (54385) Diagnoses Class 2 severe obesity with serious comorbidity and body mass index (BMI) of 35.0 to 35.9 in adult, unspecified obesity type E66.812; E66.01; Z68.35 Obesity type: unspecified obesity type Obesity classification: adult class 2 (BMI 35 - 39.9) Serious obesity comorbidity presence: with serious comorbidity Body mass index: BMI 35.0-35.9 Primary hypertension I10 Hypertension type: primary hypertension Other hyperlipidemia E78.49 Hyperlipidemia type: other hyperlipidemia Assessment & Plan Assessment & Plan (1) Obesity: Code(s): E66.9 - Obesity, unspecified Category: Medical Qualifiers: Obesity type: unspecified obesity type Obesity classification: adult class 2 (BMI 35 - 39.9) Serious obesity comorbidity presence: with serious comorbidity Body mass index: BMI 35.0-35.9 Qualified Code(s): E66.812 - Obesity, class 2; E66.01 - Morbid (severe) obesity due to excess calories; Z68.35 - Body mass index [BMI] 35.0-35.9, adult (2) Hypertension: Code(s): I10 - Essential (primary) hypertension Category: Medical Qualifiers: Hypertension type: primary hypertension Qualified Code(s): I10 - Essential (primary) hypertension (3) Hyperlipidemia: Code(s): E78.5 - Hyperlipidemia, unspecified Category: Medical Qualifiers: Hyperlipidemia type: other hyperlipidemia Qualified Code(s): E78.49 - Other hyperlipidemia Plan 73 year old female presenting for follow up Obesity-has failed diet and exercise. trial phentermine. potential SE discussed HTN-well controlled on current medications Medications: New phentermine must administer 30 minutes before or 1-2 hours after breakfast [id number] [facility] [id number] Member [id number] 37.5 mg PO DAILY 30 caps 3RF furosemide 20 mg PO DAILY PRN 30 tabs 0RF swelling
[2024-09-19 09:28] VITALS: BP 138/62; PULSE 61; RESP 14; TEMP 36.9; O2SAT 97
--- OUTSIDE RECORDS SUMMARY | 2024-09-19 09:30 | XMS_ITS | Clinical Summary ---
Author Organization [facility] Address [address] [place] [address] Care Team Providers Care Hardboard Coating Machine Operator Name Role Phone Unavailable Primary Care Provider [...] 2023 12/27/2020, 06/01/2020, 05/11/2020 Influenza Vaccine (#1) 2024 , 11/24/2019, 12/02/2018, Additional history exists RSV [...] PaulLuanakennycarlos Personal/Family Self 1950 [address] [place] [address]
--- OUTSIDE RECORDS SUMMARY | 2024-09-19 09:30 | XMS_ITS ---
[facility] Name [facility] Organization Unknown Care Team Organization Name Specialty Phone Email Start Date End Da te [facility] ([facility])
--- OUTSIDE RECORDS SUMMARY | 2024-09-19 09:30 | XMS_ITS | Clinical Summary ---
Author Organization [facility] Address [address] [place] [address] Phone Care Team Providers Care Telecommunication Engineer Name Role Phone Adrianna Parkinson MD Primary Care Provider Allergies Active Allergy Reactions Criticality Noted Date [...] Date Diagnosed Date High pulmonary arterial pressure ([facility] V24, [facility] [place] V28) 01/27/2024 Assessment & Plan (01/27/2024 3:17 PM EST): I reassured her that the echocardiographic evidence of mild pulmonary hypertension is most of the time not clinically significant. She does not have any symptoms. No further test is needed at this time. Orders: Ambulatory referral to Cardiology ECG 12 lead Severe obesity (BMI 35.0-35. 9 with comorbidity) ([facility] V24, [facility] V28) 01/25/2024 Abnormal EKG 04/15/2023 Chronic fatigue 04/15/2023 [...] Hypertension 04/25/2022 Colon polyp 04/26/2020 Overview (01/25/2024): [place] 03/2020, due again 09/2020 Recurrent UTI 10/28/2019 Overview (01/25/2024): Sees urology Lung nodules 10/04/2018 Overview (01/25/2024): LDCT TB lung, latent 02/08/2018 Oral herpes 06/09/2017 Impaired fasting glucose 05/06/2016 Seropositive rheumatoid arth ritis ([facility] V24, [facility] V28) 09/18/2015 Overview (01/25/2024): Onset ~ 2014 Brief courses of methotrexate 2015, 2018 - patient stopped meds on her own 2018- patient restarted MTX-developed stomatitis and stopped on her own 2019- humira- injection site reaction 09/2019- start olumiant Anxiety 06/05/2014 Hip pain, chronic 06/05/2014 Pure hypercholesterolemia 06/05/2014 Vertigo 06/05/2014 Vitamin D deficiency 06/05/2014 Immunizations Name Administration Dates Next Due Influenza trivalent, 0.5mL ( Fluad) 65yo and older 12/11/2023,12/24/2022,12/26/2021,11/23,12/02/2018,12/31/2017 Influenza trivalent, 0.5mL, preservative free (Fluarix; FluLaval; Fluzone) ages 6mo and older (Afluria) 3 years and older 12/02/2020,12/19/2015,01/18/2015 HydroLogex SARS-CoV-2 COVID-19, mRNA, LNP-S, preservative free 11/23/2023,12/27/2020,06/01/2020,05/11 [...] Polyps: Tubular adenomas. OTHER SURGICAL HISTORY PROCEDURE: [place] ARTHRP ACETBLR/PROX FEM PROSTC AGRFT/ALGRFT TOTAL KNEE ARTHROPLASTY PROCEDURE: [place] ARTHRP KNE CONDYLE&PLATU MEDIAL&LAT COMPARTMENTS CHOLECYSTECTOMY PROCEDURE: [place] LAPAROSCOPY SURG CHOLECYSTECTOMY Medical History Medical History [...] urology Colon polyp 04/26/2020 DX:Colon polyp; COMMENT: [place] 03/2020, due again 09/2020 Hypertension 04/25/2022 DX:Hypertension [...] Description 11/03/2024 1:00 PM EDT Ancillary Procedure [facility] [address] [place] [id number] 12/14/2024 10:50 AM EDT Office Visit [facility] [address] [place] [id number] Sharath Monk MD [address] [place] [address] [address] [place] [address] Health Maintenance Due Date Last Done Comments [...] Hypertension/CHF/CAD Annual BMP Blood Test 04/15/2024 04/15/2023 Influenza Vaccine (#1) 2024 , 12/11/2023, 12/24/2022, Additional history exists DTaP,Tdap,and Td Vaccines (2 - Td or Tdap) 08/20/2027 08/19/2017 Cholesterol Screening (Lipid Panel) 07/06/2028 07/07/2023, 07/07/2023 Hepatitis C Screening Completed 01/21/2019 Zoster Vaccines Completed 03/28/2020, 12/08, 01/02/2020 RSV Immunization Patients Under 20 months Aged Out 11/28/2022 No longer eligible based on patient's age to complete this topic Pneumococcal Vaccine: 50+ Years Completed 01/15/2024, 04/12/2020, [...] Maintenance Results * (ABNORMAL) Lipid panel (07/07/2023) [facility] LDL/HDL Ratio 5(A) 0 - 4 Triglycerides 158(A) 0 - 150 mg/dL Cholesterol 216(A) 0 - 200 mg/dL HDL 46 >=40 mg/dL LDL Cholesterol 139(A) 0 - 100 mg/dL Blood Venous blood specimen / Unknown us Historical Provider LAB BLOOD ORDERABLES Krystal l Result * Annual BMP Blood Test (04/15/2023) Pathologist [facility] Annual BMP Blood Test abstracted us Historical Provider HEALTH MAINTENANCE Final Result * Colonoscopy (03/24/2023) [facility] Colonoscopy abstracted, no interpretation Anatomical Region Laterality Modality Other us Historical Provider HEALTH MAINTENANCE Final Result * Hepatitis C Screening (01/21/2019) Hepatitis C Screening abstracted Historical Provider HEALTH MAINTENANCE Final Result from Last 3 Months or Most Recently Relevant to Health Maintenance Insurance [employer] MEDICARE Care Teams Telecommunication Engineer Relationship Specialty Start Date End Date Adrianna Parkinson MD [address] [place] [address] [phone] PCP - General Internal Medicine 05/06/24
== END 2024-09-19 09:52 | disposition home or self-care (01) ==
LOC: HO.HMCFM 09:12
PROVIDERS: PCP Internal Medicine; Visit Provider Internal Medicine
DX: E66.812 Obesity, class 2 (principal); E66.01 Morbid (severe) obesity due to excess calories; Z68.35 Body mass index [BMI] 35.0-35.9, adult; I10 Essential (primary) hypertension; E78.49 Other hyperlipidemia

== ENCOUNTER → 2024-09-19 09:12 | Outpatient (BNVA) | payer MEDICARE, SELFPAY | PROVIDERS: PCP Internal Medicine; Visit Provider Internal Medicine | DX: E66.812 Obesity, class 2 (principal); E66.01 Morbid (severe) obesity due to excess calories; Z68.35 Body mass index [BMI] 35.0-35.9, adult; I10 Essential (primary) hypertension; E78.49 Other hyperlipidemia | CPT/HCPCS: 99212 ==

== ENCOUNTER 2024-09-19 10:22 | Outpatient (REF) | payer MEDICARE, SELFPAY ==
[2024-09-19 11:42] LABS: MANUAL DIFF FLAG NO
[2024-09-19 11:56] LABS: Hematocrit 40.0 % (37.0-47.0); Hemoglobin 13.4 g/dl (12.0-16.0); Imm Gran Abs Auto 0.04 X10*3/uL (0.00-0.03); Imm Gran Pct Auto 0.4 % (0.0-0.4); Lymphocytes Absolute Auto 1.4 X10*3/uL (1.2-4.9); Mean Corpuscular HGB Conc 33.5 g/dl (31.0-35.0); Mean Corpuscular Hemoglobin 30.0 pg (27.0-33.0); Mean Corpuscular Volume 89.5 fL (80.0-98.0); NRBC Abs Auto 0.000 X10*3/uL (0.0-0.012); NRBC Pct Auto 0.0 /100WBC (0.0-0.2); Platelet Count 297 X10*3/uL (160-400); Red Blood Count 4.47 X10*6/uL (4.20-5.50); White Blood Count 10.8 X10*3/uL (4.8-10.8)
[2024-09-19 16:18] LABS: Alanine Aminotransferase 29 U/L (0-31); Albumin Level 4.3 g/dL (3.5-5.0); Alkaline Phosphatase 65 U/L (39-117); Anion Gap 13 (12-20); Aspartate Amino Transferase 43 U/L (5-31); Blood Urea Nitrogen 17 mg/dL (9-16); Calcium 9.9 mg/dL (8.4-10.2); Carbon Dioxide 26 mmol/L (22-29); Chloride 106 mmol/L (96-108); Cholesterol 196 mg/dL (<200); Estimated Glomerular Filt Rate > 60; HDL Cholesterol 41 mg/dL (>40); Iron 100 mcg/dL (30-160); Percent Iron Saturation 35 % (15-50); Potassium 4.2 mmol/L (3.3-5.1); Sodium 141 mmol/L (135-145); Total Iron Binding Capacity 287 mcg/dL (228-428); Total Protein 7.6 g/dL (6.5-8.0); Triglycerides 158 mg/dL (<150); Unsaturated Iron Binding 187 ug/dL
== END 2024-09-19 10:23 | disposition home or self-care (01) ==
LOC: HO.WFDLDS 10:22
PROVIDERS: Visit Provider Internal Medicine
DX: I10 Essential (primary) hypertension (principal); R25.2 Cramp and spasm; E78.5 Hyperlipidemia, unspecified
CPT/HCPCS: 36415; 80053; 80061; 83540; 84443; 85025

== ENCOUNTER 2024-11-09 08:34 | Outpatient (REF) | payer MEDICARE, SELFPAY ==
--- OUTSIDE RECORDS SUMMARY | 2024-11-09 09:04 | XMS_ITS | Clinical Summary ---
Author Organization [facility] [place] [facility] Address [address] [facility] [place] [address] Phone Care Team Providers Care Security Checker Name Role Phone Adrianna Parkinson MD Primary Care Provider [phone] Allergies Active Allergy Reactions Criticality Noted Date [...] Date Diagnosed Date High pulmonary arterial pressure ([facility] V24, [facility] [place] V28) 01/27/2024 Assessment & Plan (01/27/2024 3:17 PM EST): I reassured her that the echocardiographic evidence of mild pulmonary hypertension is most of the time not clinically significant. She does not have any symptoms. No further test is needed at this time. Orders: Ambulatory referral to Cardiology ECG 12 lead Severe obesity (BMI 35.0-35. 9 with comorbidity) ([facility] V24, [facility] V28) 01/25/2024 Abnormal EKG 04/15/2023 [...] Hypertension 04/25/2022 Colon polyp 04/26/2020 Overview (01/25/2024): [place] 03/2020, due again 09/2020 Recurrent UTI 10/28/2019 Overview (01/25/2024): Sees urology Lung nodules 10/04/2018 Overview (01/25/2024): LDCT TB lung, latent 02/08/2018 Oral herpes 06/09/2017 Impaired fasting glucose 05/06/2016 Seropositive rheumatoid arth ritis ([facility] V24, [facility] V28) 09/18/2015 Overview (01/25/2024): Onset [...] older (Afluria) 3 years and older 12/02/2020,12/19/2015,01/18/2015 Therma Flite SARS-CoV-2 COVID-19, mRNA, LNP-S, preservative free 11/23/2023,12/27/2020,06/01/2020,05/11 [...] Polyps: Tubular adenomas. OTHER SURGICAL HISTORY PROCEDURE: [place] ARTHRP ACETBLR/PROX FEM PROSTC AGRFT/ALGRFT TOTAL KNEE ARTHROPLASTY PROCEDURE: [place] ARTHRP KNE CONDYLE&PLATU MEDIAL&LAT COMPARTMENTS CHOLECYSTECTOMY PROCEDURE: [place] LAPAROSCOPY SURG CHOLECYSTECTOMY Medical History Medical History [...] urology Colon polyp 04/26/2020 DX:Colon polyp; COMMENT: [place] 03/2020, due again 09/2020 Hypertension 04/25/2022 DX:Hypertension [...] Care Team (Late st Contact Info) Description 12/01/2024 10:50 AM EDT Office Visit [facility] Cardiology [facility] [address] [place] [address] Sharath Monk MD [address] [place] [address] [address] [place] [address] 01/03/2025 11:30 AM EDT Appointment [facility] CT Scan [address] [place] [address] Health Maintenance Due Date Last Done Comments Breast Cancer Screening 1950 RSV Immunization Adult Patients (1 - Risk 60-74 years 1-dose series) 2010 11/28/2022 Falls Risk Assessment 02/13/2022 Osteoporosis Screening (Bone Density Screening) 02/13/2022 Social Influencers of Health Screening 02/13/2022 Medicare Annual Wellness Visit 12/26/2022 12/26/2021 Colorectal Cancer Screening: Colonoscopy 09/22/2023 03/24/2023 Depression Screening 03/09/2024 Hypertension/CHF/CAD Annual BMP Blood Test 04/15/2024 04/15/2023 COVID-19 Vaccine ( season) 2024 11/23/2023, 12/08/2022, 01/09/2022, Additional history exists Influenza Vaccine (#1) 2024 , 12/11/2023, 12/24/2022, [...] Maintenance Results * (ABNORMAL) Lipid panel (07/07/2023) [facility] LDL/HDL Ratio 5(A) 0 - 4 Triglycerides [...] HEALTH MAINTENANCE Final Result * Colonoscopy (03/24/2023) [facility] Colonoscopy abstracted, no interpretation Anatomical Region Laterality Modality Other us Historical Provider HEALTH MAINTENANCE Final Result * Hepatitis C Screening (01/21/2019) Hepatitis C Screening abstracted us Historical Provider HEALTH MAINTENANCE Final Result from Last 3 Months or Most Recently Relevant to Health [place] [address] [place] [id number] [employer] MEDICARE Care Teams Security Checker Relationship Specialty Start Date End Date Adrianna Parkinson MD [address] [place] [address] [phone] PCP - General Internal Medicine 05/06/24
--- OUTSIDE RECORDS SUMMARY | 2024-11-09 09:04 | XMS_ITS | Clinical Summary ---
Author Organization [facility] Address [address] [place] [address] Care Team Providers Care Key Account Representative Name Role Phone Unavailable Primary Care Provider [...] tablet 0 01/28/2021 Active Cholecalciferol 50 MCG (2000 UT) TABS Take by mouth. 0 Ac [...] (DEXA Scan) 11/01/2015 COVID-19 Vaccine ( season) 2024 12/27/2020, 06/01/2020, 05/11/2020 Influenza Vaccine (#1) 2024 [...] PaulLuanakennycarlos Personal/Family Self 1950 [address] [place] [address]
== END 2024-11-09 08:35 | disposition home or self-care (01) ==
LOC: HO.WFDLDS 08:34
PROVIDERS: Visit Provider Internal Medicine
DX: M06.9 Rheumatoid arthritis, unspecified (principal)
CPT/HCPCS: 36415; 85652; 86141; 86431

== ENCOUNTER 2024-11-15 14:16 | Outpatient (AMB) | payer MEDICARE, SELFPAY ==
--- NOTE | 2024-11-15 14:25 | MHC.PC.OV ---
Vital Signs 11/15/24 14:31 BMI Reason not done Patient refused/unable BP 124/54 L Blood Pressure Location Lt brachial Position Sitting Respiration 14 Pulse 64 Pulse Source Pulse Oximeter Pulse Oximetry (%) 97 Oxygen Delivery Method Room Air Intake Visit Reasons: RA pain/wants meds and bloodwork done before Intake Note: Issue with rheumatoid arthritis. Patient tried calling [employer] and they are booking next September. Singe Winder Required: No Allergies Sulfa (Sulfonamide Antibiotics) Allergy (Unknown, Verified 11/15/24 14:29) Unknown Medication List - Last Reconciled 11/15/24 by Adrianna Parkinson MD amlodipine 10 mg PO DAILY cholecalciferol (vitamin D3) 50 mcg PO DAILY clotrimazole-betamethasone 1-0.05 % 1 appl topical BID econazole nitrate 1% appl topical DAILY fenofibrate nanocrystallized 48 mg PO DAILY furosemide 20 mg PO DAILY PRN ibuprofen 800 mg PO Q8H PRN magnesium oxide 500 mg PO DAILY nitrofurantoin monohyd/m-cryst 100 mg 1 cap PO DAILY vibegron (Gemtesa) 75 mg PO DAILY Tobacco use date assessed: 09/19/24 Fall risk assessment: 2 + Falls in past year Last assessed Fall Risk: 11/15/24 Dental Screening Dental Screen Date: 04/05/24 HPI HPI Comments History of Present Illness Details 73 year old female with a past medical history of hypertension, hyperlipidemia, rheumatoid arthritis, recurrent UTI presenting for follow up RA: Was following with rheumatology. Did not feel any better on MTX or humira-says this was about 10 years ago. She takes ibuprofen TID-this has stopped being effective. ESR, CRP elevated. RF +. Diffuse joint pain but worst in bilateral hands-chronic. Gets numbness in the right hand CV: On amlodipine 10mg daily. Denies chest pain, shortness of breath. Had a panic attack/chest pain/palpitations. Echo was reassuring. Placed on holter monitor-was also reassuring. Follows with Dr Aleshia SOLORIO. She is frustrated by weight gain. She exercises regularly and has been decreasing caloric intake with no weight loss. Wanted GLP1 but not covered by insurance Urologic: Follows with Dr San. On macrobid daily and Gemtesa Colonoscopy: 2022-Dr Toney. Says 5 year repeat Mammogram: No longer doing-declines ROS see HPI PHYSICAL EXAM: GENERAL: Alert and oriented x 3. NAD EYES: EOMI. Anicteric. HENT: Moist mucous membranes. No scleral icterus. No cervical lymphadenopathy. LUNGS: CTA CARDIOVASCULAR: Regular rate and rhythm. + murmur. No JVD. ABDOMEN: Soft, non-tender +bs EXTREMITIES: No edema. Non-tender. SKIN: No rashes or lesions. Warm. NEUROLOGIC: No focal neurological deficits. CN II-XII grossly intact PSYCHIATRIC: Cooperative. Appropriate mood and affect [facility] Surgical History History of cholecystectomy H/O section Family History (Reviewed 11/16/24 @ : by Adrianna Parkinson MD) Mother Colon cancer Sister Pancreatic cancer Brother Heart attack Social History Housing: Apartment Alcohol intake: current Patient Tobacco Use Status: Former Tobacco user Years Smoked: 55 e-Cigarette/Vaping Use: Currently Using Use of substances other than those prescribed or required for medical reasons: No service: No Current occupational status: retired Cognitive needs: No Hearing needs: No Vision needs: Yes (glasses) Questionnaire Thrive Questionnaire Date Thrive assessed: 03/29/24 I am a: Patient What is your living situation today?: I have a steady place to live Within the past 12 months, did the food you bought not last and you didn't have the money to get more?: Never true Within the past 12 months, did you worry whether your food would run out before you got money to buy more?: Never true Do you have trouble paying for medicines?: No Do you have trouble getting transportation to medical appointments?: No Do you have trouble paying your heating and electricity bill?: No Do you have trouble taking care of your child, family member or friend?: No Do you have trouble with day-to-day activities such as bathing, preparing meals, shopping, managing finances, etc.?: No Are you currently unemployed and looking for a job?: No Are you interested in more education?: No Please select the resources that you would like help with: None Currently or been in a relationship where the following occur: No concerns reported THRIVE Score: 0 AUDIT C Alcohol Use Questionnaire (AUDIT-C) 1. How often do you have a drink containing alcohol?: 2-3 times a week 2. How many drinks containing alcohol do you have on a typical day when you are drinking?: 1 or 2 3. How often do you have six or more drinks on one occasion?: Never Total Score: 3 MARIANO-7 AMB Questionnaire MARIANO-7 Date MARIANO - 7 assessed: 04/05/24 Source: Developed by Drs. Kevin Alex, Shabnam Childers, Dionicio Marx and colleagues, with an educational ger from [employer]. Physical exam (Primary Care) Vital Signs: Last Vital Signs Pulse 64 11/15/24 14:31 Resp 14 11/15/24 14:31 BP 124/54 L 11/15/24 14:31 Pulse Ox 97 11/15/24 14:31 Oxygen Delivery Method Room Air 11/15/24 14:31 Tobacco/Smoking Status: Tobacco use Status Tobacco use date assessed 09/19/24 11/15/24 14:25 Patient Tobacco Use Status Former Tobacco user 11/15/24 14:34 e-Cigarette/Vaping Use Currently Using 11/15/24 14:34 Thrive Assessment: Date of Thrive Assessment Date Thrive assessed 03/29/24 11/15/24 14:25 Currently or been in a relationship where the following occur: No concerns reported Coding Level of Care Code Est Pt Level 4 (46630) Diagnoses Rheumatoid arthritis, involving unspecified site, unspecified whether rheumatoid factor present M06.9 Rheumatoid arthritis location: unspecified site Rheumatoid factor presence: unspecified presence Bilateral hand pain M79.641; M79.642 Assessment & Plan Assessment & Plan (1) Rheumatoid arthritis: Code(s): M06.9 - Rheumatoid arthritis, unspecified Category: Medical Qualifiers: Rheumatoid arthritis location: unspecified site Rheumatoid factor presence: unspecified presence Qualified Code(s): M06.9 - Rheumatoid arthritis, unspecified (2) Bilateral hand pain: Code(s): M79.641 - Pain in right hand; M79.642 - Pain in left hand Category: Medical Plan Rheumatoid Arthritis High RF, ESR, CRP. Referral to rheumatology Try meloxicam in place of ibuprofen. Choose which is more effective Tramadol for severe pain She can take a course of prednisone before and during her vacation to alleviate pain Right hand numbness-EMG ordered Orders: Orders NE nerve conduction velocity 11/15/24 M79.641 - Pain in right hand NE electromyogram (EMG) 11/15/24 M79.641 - Pain in right hand Referrals Rheumatology Referral M06.9 - Rheumatoid arthritis, unspecified Medications: New tramadol 50 mg PO Q8H PRN 21 tabs 0RF pain meloxicam 15 mg PO DAILY 30 tabs 3RF prednisone Take 40mg daily for 5 days then take 20mg daily for 5 days then take 10mg daily for 5 days 10 mg PO DIRECTED 35 tabs 0RF Changed From furosemide 20 mg PO DAILY 90 tabs 1RF for swelling To furosemide 20 mg PO DAILY PRN
[2024-11-15 14:31] VITALS: BP 124/54; PULSE 64; RESP 14; O2SAT 97
--- OUTSIDE RECORDS SUMMARY | 2024-11-15 16:50 | XMS_ITS | Clinical Summary ---
Author Organization [facility] Address [address] [facility] [place] [address] Phone Care Team Providers Care Hospice Nurse Practitioner Name Role Phone Adrianna Parkinson MD Primary Care Provider [phone] Allergies Active Allergy Reactions Criticality Noted Date [...] Date Diagnosed Date High pulmonary arterial pressure ([facility]24, [place] V28) 01/27/2024 Assessment & Plan (01/27/2024 3:17 PM EST): I reassured her that the echocardiographic evidence of mild pulmonary hypertension is most of the time not clinically significant. She does not have any symptoms. No further test is needed at this time. Orders: Ambulatory referral to Cardiology ECG 12 lead Severe obesity (BMI 35.0-35. 9 with comorbidity) ([facility] V24, [facility] V28) 01/25/2024 Abnormal EKG 04/15/2023 Chronic fatigue [...] Hypertension 04/25/2022 Colon polyp 04/26/2020 Overview (01/25/2024): [place] 03/2020, due again 09/2020 Recurrent UTI 10/28/2019 Overview (01/25/2024): Sees urology Lung nodules 10/04/2018 Overview (01/25/2024): LDCT TB lung, latent 02/08/2018 Oral herpes 06/09/2017 Impaired fasting glucose 05/06/2016 Seropositive rheumatoid arth ritis ([facility] V24, [facility] V28) 09/18/2015 Overview (01/25/2024): Onset ~ 2014 [...] older (Afluria) 3 years and older 12/02/2020,12/19/2015,01/18/2015 [facility] SARS-CoV-2 COVID-19, mRNA, LNP-S, preservative free 11/23/2023,12/27/2020,06/01/2020,05/11 [...] urology Colon polyp 04/26/2020 DX:Colon polyp; COMMENT: [place] 03/2020, due again 09/2020 Hypertension 04/25/2022 DX:Hypertension [...] Description 12/01/2024 10:50 AM EDT Office Visit [facility] Cardiology [facility] [address] [place] [address] Sharath Monk MD [address] [place] [address] [address] [place] [address] 01/03/2025 11:30 AM EDT Appointment [facility] CT Scan [address] [place] [address] Health Maintenance Due Date Last [...] Maintenance Results * (ABNORMAL) Lipid panel (07/07/2023) [facility] LDL/HDL Ratio 5(A) 0 - 4 Triglycerides 158(A) 0 - 150 mg/dL Cholesterol 216(A) 0 - 200 mg/dL HDL 46 >=40 mg/dL LDL Cholesterol 139(A) 0 - 100 mg/dL Blood Venous blood specimen / Unknown us Historical Provider LAB BLOOD ORDERABLES Krystal l Result * Annual BMP Blood Test (04/15/2023) Pathologist [facility] Annual BMP Blood Test abstracted us Historical Provider HEALTH MAINTENANCE Final Result * Colonoscopy (03/24/2023) [facility] Colonoscopy abstracted, no interpretation Anatomical Region Laterality Modality Other us Historical Provider HEALTH MAINTENANCE Final Result * Hepatitis C Screening (01/21/2019) Hepatitis C Screening abstracted us Historical Provider HEALTH MAINTENANCE Final Result from Last 3 Months or Most Recently Relevant to [place] [address] [id number] [employer] MED[employer]ARE Care Teams Hospice Nurse Practitioner Relationship Specialty Start Date End Date Adrianna Parkinson MD [address] [place] [address] [phone] PCP - General Internal Medicine 05/06/24
--- OUTSIDE RECORDS SUMMARY | 2024-11-15 16:50 | XMS_ITS | Clinical Summary ---
Author Organization [facility] Address [address] [place] [address] Care Team Providers Care Fitter'S Assistant Name Role Phone Unavailable Primary Care Provider [...] PaulLuanakennycarlos Personal/Family Self 1950 [address] [place] [address]
== END 2024-11-15 17:02 | disposition home or self-care (01) ==
LOC: HO.HMCFM 14:16
PROVIDERS: PCP Internal Medicine; Visit Provider Internal Medicine
DX: M06.9 Rheumatoid arthritis, unspecified (principal); M79.641 Pain in right hand; M79.642 Pain in left hand

== ENCOUNTER → 2024-11-15 14:16 | Outpatient (BNVA) | payer MEDICARE, SELFPAY | PROVIDERS: PCP Internal Medicine; Visit Provider Internal Medicine | DX: M06.9 Rheumatoid arthritis, unspecified (principal); M79.641 Pain in right hand; M79.642 Pain in left hand; I10 Essential (primary) hypertension; Z79.899 Other long term (current) drug therapy | CPT/HCPCS: 99212 ==

== ENCOUNTER 2024-12-09 08:14 | Outpatient (AMB) | payer MEDICARE, SELFPAY ==
--- NOTE | 2024-12-09 08:18 | A.OFFPC_ITS ---
Intake Visit Reasons: AWV Allergies Sulfa (Sulfonamide Antibiotics) Allergy (Unknown, Verified 11/15/24 14:29) Unknown Tobacco use date assessed: 09/19/24 Dental Screening Dental Screen Date: 04/05/24 COUNT INCLUDES [facility] Surgical History History of cholecystectomy H/O section Family History Mother Colon cancer Sister Pancreatic cancer Brother Heart attack Social History Housing: Apartment Alcohol intake: current Patient Tobacco Use Status: Former Tobacco user Years Smoked: 55 e-Cigarette/Vaping Use: Currently Using service: No Current occupational status: retired Cognitive needs: No Hearing needs: No Vision needs: Yes (glasses) Questionnaire Thrive Questionnaire Date Thrive assessed: 03/29/24 I am a: Patient What is your living situation today?: I have a steady place to live Within the past 12 months, did the food you bought not last and you didn't have the money to get more?: Never true Within the past 12 months, did you worry whether your food would run out before you got money to buy more?: Never true Do you have trouble paying for medicines?: No Do you have trouble getting transportation to medical appointments?: No Do you have trouble paying your heating and electricity bill?: No Do you have trouble taking care of your child, family member or friend?: No Do you have trouble with day-to-day activities such as bathing, preparing meals, shopping, managing finances, etc.?: No Are you currently unemployed and looking for a job?: No Are you interested in more education?: No Please select the resources that you would like help with: None Currently or been in a relationship where the following occur: No concerns reported THRIVE Score: 0 MARIANO-7 AMB Questionnaire MARIANO-7 Date MARIANO - 7 assessed: 04/05/24 Source: Developed by Drs. Kevin Alex, Shabnam Childers, Dionicio Marx and colleagues, with an educational ger from [employer]. Physical exam (Primary Care) Tobacco/Smoking Status: Tobacco use Status Tobacco use date assessed 09/19/24 11/15/24 14:25 Patient Tobacco Use Status Former Tobacco user 11/15/24 14:34 e-Cigarette/Vaping Use Currently Using 11/15/24 14:34 Thrive Assessment: Date of Thrive Assessment Date Thrive assessed 03/29/24 11/15/24 14:25 Currently or been in a relationship where the following occur: No concerns reported Coding
--- NOTE | 2024-12-09 08:21 | A.OFFVIS_ITS ---
Intake Vital Signs 12/09/24 08:34 Height 5 ft 1 in BMI Reason not done Patient refused/unable BP 118/64 Blood Pressure Location Lt brachial Position Sitting Respiration 14 Pulse 57 Pulse Source Pulse Oximeter Pulse Oximetry (%) 97 Oxygen Delivery Method Room Air Intake Visit Reasons: AWV Allergies Sulfa (Sulfonamide Antibiotics) Allergy (Unknown, Verified 12/09/24 08:21) Unknown HPI HPI Comments History of Present Illness Details 74 year old female with a past medical h istory of hypertension, hyperlipidemia, rheumatoid arthritis, recurrent UTI presenting for MWV RA: Was following with rheumatology-she has an upcoming appt in Feb. Did not feel any better on MTX or humira-says this was about 10 years ago. She takes ibuprofen TID-this has stopped being effective. meloxicam is giving her some relief. ESR, CRP elevated. RF +. Diffuse joint pain but worst in bilateral hands-chronic. Gets numbness in the right hand. EMG is scheduled CV: On amlodipine 10mg daily. Denies chest pain, shortness of breath. Had a caban ic attack/chest pain/palpitations. Echo was reassuring. Placed on holter monitor-was also reassuring. Follows with Dr Aleshia SOLORIO. She is frustrated by weight gain. She exercises regularly and has been decreasing caloric intake with no weight loss. Wanted GLP1 but not covered by insurance Urologic: Follows with Dr San. On macrobid daily and Gemtesa Colonoscopy: 2022-Dr Toney. Says 5 year repeat Mammogram: No longer doing-declines HRA reviewed Care team reviewed Independent ADLS ROS see HPI PHYSICAL EXAM: GENERAL: Alert and oriented x 3. NAD EYES: EOMI. Anicteric. HENT: Moist mucous membranes. No scleral icterus. No cervical lymphadenopathy. LUNGS: CTA CARDIOVASCULAR: Regular rate and rhythm. + murmur. No JVD. ABDOMEN: Soft, non-tender +bs EXTREMITIES: No edema. Non-tender. SKIN: No rashes or lesions. Warm. NEUROLOGIC: No focal neurological deficits. CN II-XII grossly intact PSYCHIATRIC: Cooperative. Appropriate mood and affect [facility] Surgical History History of cholecystectomy H/O section Family History Mother Colon cancer Sister Pancreatic cancer Brother Heart attack Social History Housing: Apartment Alcohol intake: current Patient Tobacco Use Status: Former Tobacco user Years Smoked: 55 e-Cigarette/Vaping Use: Currently Using service: No Current occupational status: retired Cognitive needs: No Hearing needs: No Vision needs: Yes (glasses) Questionnaire Medicare Wellness Checkup [age] What gender do you identify with?: female During the past 4 weeks, how much have you been bothered by emotional problems such as feeling anxious, depressed, irritable, sad or downhearted, and blue?: moderately During the past 4 weeks, has your physical & emotional health limited your social activities with family, friends, neighbors, or groups?: not at all During the past 4 weeks, how much bodily pain have you generally had?: severe pain During the past 4 weeks, was someone available to help you if you needed & wanted help?: yes, as much as I wanted During the past 4 weeks, what was the hardest physical activity you could do for at least 2 minutes?: heavy Can you get to places out of walking distance without help? (For eg., can you travel alone on buses, taxis or drive your car?): Yes Can you go shopping for groceries or clothes without someone's help?: Yes Can you prepare your own meals?: Yes Can you do your housework without help?: No (hiring a house keeper) Because of any health problems, do you need the help of another person with your personal care needs such as eating, bathing, dressing or getting around the house?: No Can you handle your own money without help?: Yes During the past 4 weeks, how would you rate your health in general?: fair During the past 4 weeks how have things been going for you?: good & bad parts about equal Are you having difficulties driving your car?: yes, often Do you always fasten your seat belt when you are in a car?: yes, usually During past 4 weeks, have you been bothered by the following: never: Falling or dizzy when standing up, Sexual problems?, Trouble eating well?, Teeth or denture problems? and Problems using the telephone? and often: Tiredness or fatigue? Have you fallen 2 or more times in the past year?: Yes Are you afraid of falling?: Yes Are you a smoker?: yes, but I'm not ready to quit During the past 4 weeks, how many drinks of wine, beer, or other alcoholic beverages did you have?: 1 drink or less per week Do you exercise for about 20 minutes 3 or more times a week?: yes, all the time (streching) Have you been given information to help with the following?: no: Hazards in your house that might hurt you? and no: Keeping track of your medications? How often do you have trouble taking medicines the way you have been told to take them?: I always take medicine as prescribed How confident are you that you can control & manage most of your health problems?: very confident What is your race?: White Mini Mental State Exam (MMSE) Orientation What is the (year) (season) (date) (day) (month)?: year (2024), season (fall), date (12/09/2024), day (Thursday) and month (December ) Where are we (state) (county) (town or city) (hospital) (floor)?: state ([place]), county ([place]), town or city ([place]), hospital/clinic ([facility]) and floor (first) Registration Name of 3 unrelated objects clearly and slowly, then ask patient to repeat all 3 of them. (1st repeat determines score. Make sure they can repeat all three): object 1 (ball), object 2 (flag) and object 3 (tree) Attention & Calculation (CHOOSE ONE) Spell WORLD backwards (DLROW): 5 letters Recall Ask patient to repeat the 3 items from question #3.: object 1 (ball), object 2 (flag) and object 3 (tree) Language Show patient a wristwatch & ask what it is. Repeat for pencil.: watch and pencil Ask the patient to repeat the phrase 'No ifs, ands, or buts' after you.: correct Ask the patient to 'take a piece of paper with their right hand' 'fold paper in half' 'place paper on floor': take paper in right hand and fold paper in half Print the sentence 'CLOSE YOUR EYES' on a piece. If patient actually closes eyes then score.: followed written direction Give patient a blank piece of paper & ask to write a sentence. Score if it contains a noun & verb.: sentence contains subject and verb Ask patient to copy figure of intersecting pentagons exactly. Score if all 10 angles & 2 intersects are included.: all 10 angles present & 2 are intersected Score Score: 29 Activity of Daily Living Bathing - sponge bath, tub bath or shower: receives no assistance (gets in/out by self, if usual bathing means Dressing - getting clothes from closets & drawers, including inner/outer garments & fasteners.: gets clothes & gets completely dressed without help Toileting - going to the 'toilet room' for urine/bowel elimination & cleaning self/arranging clothes: goes to toilet room, cleans self, arranges clothes without help Transfer: moves in & out of bed and chair without help (may use support object) Continence: controls urination/bowel movements completely by self Feeding: feeds self without help Total Score: 0 Information obtained from: patient Using telephone: independent Traveling: independent Shopping: independent Preparing meals: independent Housework: independent Taking medicine: independent Managing money: independent Physical Exam Vital Signs: Last Vital Signs Pulse 57 12/09/24 08:34 Resp 14 12/09/24 08:34 BP 118/64 12/09/24 08:34 Pulse Ox 97 12/09/24 08:34 Oxygen Delivery Method Room Air 12/09/24 08:34 Assessment & Plan Assessment & Plan (1) Medicare annual wellness visit, subsequent: Code(s): Z00.00 - Encounter for general adult medical examination without abnormal findings (2) Hypertension: Code(s): I10 - Essential (primary) hypertension Qualifiers: Hypertension type: primary hypertension Qualified Code(s): I10 - Essential (primary) hypertension (3) Hyperlipidemia: Code(s): E78.5 - Hyperlipidemia, unspecified Qualifiers: Hyperlipidemia type: other hyperlipidemia Qualified Code(s): E78.49 - Other hyperlipidemia (4) Rheumatoid arthritis: Code(s): M06.9 - Rheumatoid arthritis, unspecified Qualifiers: Rheumatoid arthritis location: unspecified site Rheumatoid factor presence: unspecified presence Qualified Code(s): M06.9 - Rheumatoid arthritis, unspecified Plan MWV Interval history reviewed RA-Upcoming consult HTN-stable on current medications Declines mammogram Labs UTD Coding Level of Care Code Medicare Subsequent (G0439) Diagnoses Medicare annual wellness visit, subsequent Z00.00 Primary hypertension I10 Hypertension type: primary hypertension Other hyperlipidemia E78.49 Hyperlipidemia type: other hyperlipidemia Rheumatoid arthritis, involving unspecified site, unspecified whether rheumatoid factor present M06.9 Rheumatoid arthritis location: unspecified site Rheumatoid factor presence: unspecified presence
[2024-12-09 08:34] VITALS: BP 118/64; PULSE 57; RESP 14; O2SAT 97
== END 2024-12-09 09:03 | disposition home or self-care (01) ==
LOC: HO.HMCFM 08:15
PROVIDERS: PCP Internal Medicine; Visit Provider Internal Medicine
DX: Z00.00 Encounter for general adult medical examination without abnormal findings (principal); I10 Essential (primary) hypertension; E78.49 Other hyperlipidemia; M06.9 Rheumatoid arthritis, unspecified

== ENCOUNTER 2025-02-14 12:54 | Outpatient (AMB) | payer MEDICARE, SELFPAY ==
--- NOTE | 2025-02-14 13:03 | MHC.OFFVIS ---
Vital Signs 02/14/25 13:12 Height 5 ft 1 in Weight 177 lb BMI 33.4 BMI Reason not done Patient refused/unable BP 124/70 Blood Pressure Location Lt brachial Position Sitting Pulse 67 Pulse Source Pulse Oximeter Pulse Oximetry (%) 96 Oxygen Delivery Method Room Air Intake Visit Reasons: Rheumatoid arthritis Intake Note: New patient presents today for RA. Tool And Machine Maintainer Required: No Information Interpreted: non-clinical & clinical Accompanied by: Self / Same As Patient Allergies Sulfa (Sulfonamide Antibiotics) Allergy (Unknown, Verified 12/09/24 08:21) Unknown Medication List - Last Reconciled 02/14/25 by Kimberly Martin MD amlodipine 10 mg PO DAILY cholecalciferol (vitamin D3) 50 mcg PO DAILY clotrimazole-betamethasone 1-0.05 % 1 appl topical BID econazole nitrate 1% appl topical DAILY fenofibrate nanocrystallized 48 mg PO DAILY furosemide 20 mg PO DAILY PRN magnesium oxide 500 mg PO DAILY meloxicam 15 mg PO DAILY nitrofurantoin monohyd/m-cryst 100 mg 1 cap PO DAILY tramadol 50 mg PO Q8H PRN vibegron (Gemtesa) 75 mg PO DAILY HPI Comments Details: Patient is a 74-year-old female with hypertension, hyperlipidemia, polyarticular osteoarthritis and rheumatoid arthritis here today to establish care - She reports that approximately 10-12 years ago, blood work revealed a positive RA factor, and she was subsequently diagnosed with rheumatoid arthritis. - At that time, she was asymptomatic but was treated sequentially with methotrexate and Humira, both of which she discontinued as she did not feel any different. - Over the last 8 months, she has experienced a significant worsening of symptoms, including hand pain, difficulty with senior it engineer, and generalized pain in her joints and back. - The pain is severe enough to cause her to stoop when walking and has limited her ability to perform desired activities. - She also notes swelling in her ankles and lower legs. 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 - Recent blood work from her primary care physician revealed high RA numbers, which prompted the urgent referral. - For management, she was switched from ibuprofen to meloxicam, which provided some initial relief but is no longer effective. - A course of prednisone prescribed for a recent trip provided dramatic relief, resolving her pain and inflammation to a degree she had not experienced in 20 years. - She has also used tramadol for severe pain with good effect. [facility] Surgical History History of cholecystectomy H/O section Family History Mother Colon cancer Sister Pancreatic cancer Brother Heart attack Social History Housing: Apartment Alcohol intake: current Patient Tobacco Use Status: Former Tobacco user Years Smoked: 55 e-Cigarette/Vaping Use: Currently Using service: No Current occupational status: retired Cognitive needs: No Hearing needs: No Vision needs: Yes (glasses) Review of Systems Narrative Review of Systems Constitutional: Denies fever, chills, weight loss ENT: Denies vision changes, eye pain or eye redness, dental caries, dry mouth GI: Denies nausea, vomiting, diarrhea, abdominal pain, change in BM Pulm: Denies SOB, YOUNG, hemoptysis, wheezing Cards: Denies chest pain, palpitations, +ve lower extremity edema Skin: Denies Raynaud's, rash, nail changes, photosensitivity, LAUNCH MANAGER: Denies headaches, weakness, paresthesias, recurrent falls MSK: as per HPI All other systems reviewed and are unremarkable except noted above Physical Exam Exam Exam: Vital signs reviewed Physical Examination CONSTITUITIONAL Patient alert and cooperative. Well appearing and in no apparent painful distress MSK Hands Right Hand: Able to make a fist. No swelling Left Hand: Able to make a fist. No swelling Tenderness to palpation over the right 4th and 5th MCPs and PIPs. Tenderness to palpation over the left 4th MCP. Herbedens nodes noted bilaterally Wrists Right Wrist: Full ROM to flexion and extension. No swelling or TTP Left Wrist: Full ROM to flexion and extension. No swelling or TTP Elbows Right Elbow: Full ROM. No swelling or TTP. No TTP of the medial epicondyle. No TTP of the lateral epicondyle Left Elbow: Full ROM. No swelling or TTP. No TTP of the medial epicondyle. No TTP of the lateral epicondyle Shoulders Right shoulder: Full ROM. No swelling noted. No TTP of the AC joint. No TTP of the subacromial bursa. No TTP of the posterior shoulder Left shoulder: Decreased range of motion of the left shoulder to approximately 90 degrees. No swelling noted. TTP of the AC joint. No TTP of the subacromial bursa. No TTP of the posterior shoulder Hip bursa: No tenderness to palpation bilaterally Knees Right knee: Full ROM. No swelling noted. No TTP of the knee joint line. No TTP of pes anserine bursa Left knee: Well-healed surgical scar over the left knee. No swelling noted. No TTP of the knee joint line. No TTP of pes anserine bursa. Ankles Right ankle: Good ankle dorsiflexion and plantar flexion. No swelling. No TTP of the ankle joint Left ankle: Good ankle dorsiflexion and plantar flexion. No swelling. No TTP of the ankle joint Extremities Bilateral pitting edema up to the tibial tuberosity. Feet Right foot: Negative squeeze test Left foot: Negative squeeze test Tender points? No tenderness to palpation of the bilateral trapezius, supraspinatus, anterior costochondral junctions, bilateral suboccipital muscle insertions SKIN No rashes Vital Signs: Last Vital Signs Pulse 67 02/14/25 13:12 BP 124/70 02/14/25 13:12 Pulse Ox 96 02/14/25 13:12 Oxygen Delivery Method Room Air 02/14/25 13:12 BMI result Body Mass Index 33.4 Results Reviewed Results Reviewed: Laboratory Tests 09/19/24 11/09/24 10:25 08:40 WBC 10.8 RBC 4.47 Hgb 13.4 Hct 40.0 Plt Count 297 ESR 50 H Sodium 141 Potassium 4.2 Chloride 106 Carbon Dioxide 26 BUN 17 H Creatinine 0.71 AST 43 H ALT 29 Laboratory Tests 11/09/24 08:40 Rheumatoid Factor 597.1 H Assessment & Plan Assessment & Plan (1) Rheumatoid arthritis: Comment: 2014 Seropositive RA (+RF) Mtx ineffective Humira ineffective Code(s): M06.9 - Rheumatoid arthritis, unspecified Category: Medical Qualifiers: Rheumatoid arthritis location: unspecified site Rheumatoid factor presence: unspecified presence Qualified Code(s): M06.9 - Rheumatoid arthritis, unspecified Plan: #Seropositive RA Patient is a 74-year-old female with seropositive rheumatoid arthritis here today to establish care. Has a mild synovitis to her fingers today. She does have a lot of osteoarthritis derived pain but I think moving forward we can try doing a low-dose immunosuppression with hydroxychloroquine Plan - Hydroxychloroquine 200mg bid - RTC 4 months - Labs before visit: CBC, CMP, ESR, CRP, CCP (2) Polyarticular osteoarthritis: Code(s): M15.9 - Polyosteoarthritis, unspecified Plan: #Polyarticular OA Patient with polyarticular osteoarthritis complicating her underlying mild rheumatoid arthritis. Had a long discussion with the patient about the difference. We will continue meloxicam Plan - Continue meloxicam 15mg daily (3) Screening for osteoporosis: Code(s): Z13.820 - Encounter for screening for osteoporosis Plan: #Screening for osteoporosis Check DEXA (4) Encounter for monitoring of hydroxychloroquine therapy: Code(s): Z51.81 - Encounter for therapeutic drug level monitoring; Z79.899 - Other residential (current) drug therapy Plan: #Long-term Use of Hydroxychloroquine Discussed with patient the risks and benefits of hydroxychloroquine in managing the rheumatic condition Benefits include: - Reduced pain, reduce mortality, maintenance of remission and reduction of flares Risks include: - GI upset, skin hyperpigmentation, retinal toxicity (especially after more than 5 years of use), myopathy Advised yearly ophthalmology visits Plan I discussed with the patient that her symptoms are likely due to a combination of osteoarthritis (OA) and rheumatoid arthritis (RA). I explained that OA is a wear and tear arthritis, which accounts for her joint replacements and pain that worsens with activity, and that the new medication for RA will not resolve this pain. I educated her that RA is an autoimmune condition, and her highly positive lab results and excellent response to prednisone are consistent with this, though her RA component is likely mild. We reviewed the significant side effects of long-term prednisone use, such as bone thinning, increased blood sugar and blood pressure, and thinning skin, explaining why it is not a sustainable treatment. I recommended starting hydroxychloroquine as a mild immunosuppressant for the RA, and we discussed the primary long-term risk of retinal deposits after 5 years of use. I advised her to continue meloxicam for the OA. Additionally, I recommended compression stockings for her leg edema. We discussed that she is due for a bone density scan, which I will order. A follow-up visit is scheduled for 4 months, with lab work to be completed one week prior. I instructed her to contact the office or use the patient portal for any issues that arise before her next appointment. This is my first visit with this patient. I spent 45 minutes reviewing the record and labs, taking a history, examining the patient, discussing the treatment plan, ordering diagnostic work up and documenting in the medical record Orders: Orders Comprehensive Met. Panel 4 Months M06.9 - Rheumatoid arthritis, unspecified, Z79.899 - Other superintendent marine oil terminal (current) drug therapy Erythrocyte Sedimentation Rate 4 Months M06.9 - Rheumatoid arthritis, unspecified, Z79.899 - Other superintendent marine oil terminal (current) drug therapy Cyclic Citrullinated Peptide 4 Months M06.9 - Rheumatoid arthritis, unspecified Complete Blood Count Auto Diff 4 Months M06.9 - Rheumatoid arthritis, unspecified, Z79.899 - Other residential (current) drug therapy C Reactive Protein 4 Months M06.9 - Rheumatoid arthritis, unspecified, Z79.899 - Other superintendent marine oil terminal (current) drug therapy XR DEXA axial skeleton Today M81.0 - Age-related osteoporosis without current pathological fracture Medications: New hydroxychloroquine (Plaquenil) 200 mg PO BID 180 tabs 1RF 90 days M06.9 - Rheumatoid arthritis, unspecified Coding Level of Care Code New Pt Level 4 (74038) Complex visit Add On G2211 Diagnoses Rheumatoid arthritis, involving unspecified site, unspecified whether rheumatoid factor present M06.9 Rheumatoid arthritis location: unspecified site Rheumatoid factor presence: unspecified presence Polyarticular osteoarthritis M15.9 Screening for osteoporosis Z13.820 Encounter for monitoring of hydroxychloroquine therapy Z51.81; Z79.899
[2025-02-14 13:12] VITALS: BP 124/70; PULSE 67; O2SAT 96; BMI 33.4
== END 2025-02-14 13:58 | disposition home or self-care (01) ==
LOC: HO.RHES 12:55
PROVIDERS: PCP Internal Medicine; Visit Provider Student in an Organized Health Care Education/Training Program
DX: M06.9 Rheumatoid arthritis, unspecified (principal); M15.9 Polyosteoarthritis, unspecified; Z13.820 Encounter for screening for osteoporosis; Z51.81 Encounter for therapeutic drug level monitoring; Z79.899 Other long term (current) drug therapy
CPT/HCPCS: 99204; G2211

== ENCOUNTER → 2025-02-14 12:54 | Outpatient (BNVA) | payer MEDICARE, SELFPAY | PROVIDERS: PCP Internal Medicine; Visit Provider Student in an Organized Health Care Education/Training Program | DX: Z13.820 Encounter for screening for osteoporosis (principal); Z76.89 Persons encountering health services in other specified circumstances; M06.9 Rheumatoid arthritis, unspecified; M15.9 Polyosteoarthritis, unspecified; Z51.81 Encounter for therapeutic drug level monitoring; Z79.899 Other long term (current) drug therapy | CPT/HCPCS: 99202 ==